=== PATIENT | female | born 1960 | race Caucasian/White ===

== ENCOUNTER 2017-08-29 19:03 | Inpatient (IN) | payer OTHER ==
[~2017-08-29] VITALS: Ht 157.5 cm; Wt 90.0 kg
[~2017-08-29 19:03] MED LIST: ACETAMINOPHEN500 MG PO; ALBIPROI INH; ALBU90OI INH; ALBU90OI6 INH; ALBU90OI61 INH; AMIT25; AMIT25 PO; AMOCLA875 PO; AMOX500 PO; ATEN25 PO; ATEN50; ATEN50 PO; AZIT250 PO; Atenolol50 MG PO; Ativan0.5 MG PO; Ativan1 MG PO; BENZ100A PO; BUSP5 PO; Bactrim Ds Tab1 EACH PO; CARI350; CARI350 PO; CARV6.25 PO; CEPH500 PO; CHLO500 PO; CIPR500 PO; CIPRO500 MG PO; CLON.5 PO; CLON1 PO; CODACE30 PO; CODGUAEL PO; COREG; CYCL10 PO; Cough Syru100 MG/5 M PO; Cyclobenzaprine5 MG PO; DEXGUASY PO; DIAZ2 PO; DIPATR; DIPATR PO; DIPH50 PO; DOC250 PO; DOXY100 PO; Esgic Tablet1 EACH PO; FLUSAL2505 IH; GEMF600; GUAI600ER PO; GUAPHELA PO; HALO5 PO; HYDACE10B; HYDACE10B PO; HYDACE5; HYDACE5 PO; HYDACE5325; HYDACE5325 PO; HYDACE7.5; HYDACE7.5 PO; HYDCHLSU PO; HYDGUAL120; HYDGUAL120 PO; HYDHOMSY PO; HYDPAM25 PO; HYDR1TAB94 PO; IBUP600 PO; IBUP800 PO; INDO25 PO; INSDET100 SC; INSDET100 SQ; INSDETPEN SC; INSULIN MC; KETO10 PO; Keflex500 MG PO; Klonopin0.5 MG PO; LEVFLO250 PO; LEVFLO500 PO; LISI20 PO; LISI5 PO; LORA.5 PO; LORA1; LORA1 PO; LORA2; LORA2 PO; LORTAB 10-3251 EACH PO; META800 PO; METCAR500 PO; METR500 PO; MORP15ER PO; NAPR250 PO; NAPR500 PO; NAPR500EC PO; NAPR550 PO; NITR100CA PO; NORT10; NORT10 PO; NORT25 PO; NYST237S MT; Naprosyn500 MG PO; Norco 10-325 T1 EACH PO; Norco 5-325 Ta1 EACH PO; ONDA4 PO; OXYACE10 PO; OXYACE5T; OXYACE5T PO; OXYC5 PO; PENVK500 PO; PILOCARPINE; PRED20 PO; PROCODE120 PO; PRODEXEL PO; PROM25; PROM25 PO; PROM6.25SY; PROM6.25SY PO; PROP20; Pain Relief500 MG PO; Percocet 5-3251 EACH PO; Phenergan25 M1 PO; Phenergan6.25 MG/5 PO; Prinivil10 MG PO; RXCODGUASY PO; RXHYDACE PO; RXHYDMOR2 PO; RXLORA1 PO; RXNAPNA550 PO; RXPROCODSY PO; RXPROM25 PO; RXSULTRIDS PO; RXTRAM50 PO; Robaxin500 MG PO; SERT50; SOMA350 MG PO; SULTRIDS PO; TIMO.25OPS; TIMO.25OPS OU; TIMO.5OPSO; TIMO.5OPSO OD; TIMO.5OPSO OU; TIZA4 PO; TRAM50 PO; Tenormin25 MG PO; Tenormin50 MG PO; Ultram50 MG PO; VERA240ERB; VICODIN 5-3001 EACH PO; Vistaril25 MG PO; ZOLP10 PO; ZOLP5 PO; Zofran Odt8 MG SL; Zofran4 MG PO; [UNRECOGNIZED DRUG - CODE]; [UNRECOGNIZED DRUG - CODE]; [UNRECOGNIZED DRUG - CODE] OP; [UNRECOGNIZED DRUG - CODE] OU; [UNRECOGNIZED DRUG - OTHER] MC; [UNRECOGNIZED DRUG - REMARK]
[2017-08-29 19:33] LABS: BASOPHILS ABSOLUTE AUTO 0.02 K/mm3 (0.00-0.23); BASOPHILS PERCENT AUTO 0 % (0-2); EOSINOPHILS ABSOLUTE AUTO 0.22 K/mm3 (0.00-0.68); EOSINOPHILS PERCENT AUTO 2 % (0-6); Hematocrit 44.3 % (33.0-51.0); Hemoglobin 14.3 g/dL (11.5-16.0); IMMATURE GRAN ABSOLUTE AUTO 0.06 K/mm3 (0.00-0.10); IMMATURE GRAN PERCENT AUTO 1 % (0-1); LYMPHOCYTES ABSOLUTE AUTO 2.75 K/mm3 (0.84-5.20); LYMPHOCYTES PERCENT AUTO 24 % (21-46); MONOCYTES ABSOLUTE AUTO 1.55 K/mm3 (0.16-1.47); MONOCYTES PERCENT AUTO 13 % (4-13); Mean Corpuscular HGB 29.6 pg (26.0-34.0); Mean Corpuscular HGB Conc 32.3 g/dL (31.5-36.5); Mean Corpuscular Volume 92 fL (80-100); Mean Platelet Volume 12.5 fL (9.1-12.4); NEUTROPHILS ABSOLUTE AUTO 7.04 K/mm3 (1.96-9.15); NEUTROPHILS PERCENT AUTO 61 % (41-73); NRBC ABSOLUTE 0.04 K/mm3 (0.00-0.02); NRBC Auto 0.3 /100 WBC (0.0-0.2); Platelet Count 203 K/mm3 (150-400); RDW Coefficient Variation 13.5 % (11.7-14.2); Red Blood Cell Count 4.83 M/mm3 (3.80-5.20); White Blood Cell Count 11.64 K/mm3 (4.00-11.30)
[2017-08-29] MEDS ORDERED: ATEN50 PO (19:55)
[2017-08-29] MEDS ORDERED: CLON.5 PO (19:58)
[2017-08-29 19:59] LABS: Troponin I <0.015 ng/mL (0.000-0.040)
[2017-08-29] MEDS ORDERED: PROM25 PO (19:59)
[2017-08-29] MEDS ORDERED: NORT25 PO (19:59)
[2017-08-29] MEDS ORDERED: TRAM50 PO (19:59)
[2017-08-29 20:04] LABS: Alanine Aminotransfer (ALT/SGP 31 U/L (12-78); Albumin/Globulin Ratio 0.7 (0.8-1.8); Alk Phos 77 U/L (50-136); Anion Gap 8 mmol/L (6-16); Aspartate Aminotrans (AST/SGOT 23 U/L (12-37); Bilirubin, Total 0.4 mg/dL (0.1-1.0); Blood Urea Nitrogen 14 mg/dL (8-24); Bun/Creatinine Ratio 16.5 (12.0-20.0); CO2, Blood 31 mmol/L (21-32); Chloride, Blood 104 mmol/L (98-108); Creatinine, Blood 0.85 mg/dL (0.40-1.00); Globulin, Blood 4.3 g/dL (2.2-4.0); Glomerular Filtration Rate >60 (60-); Glucose, Blood 102 mg/dL (70-99); Potassium, Blood 3.1 mmol/L (3.5-5.5); Sodium, Blood 143 mmol/L (136-145); Total Protein, Blood 7.3 g/dL (6.4-8.2)
[2017-08-29 20:06] LABS: PCO2 Arterial 51.9 mmHg (35-45); PO2 Arterial 59.9 mmHg (80-100)
[2017-08-30 01:04] LABS: Influenza A Negative (NEGATIVE); Influenza B Negative (NEGATIVE)
[2017-08-30] MEDS ORDERED: SOMA350 MG PO (01:13)
[2017-08-30 06:28] LABS: BASOPHILS ABSOLUTE AUTO 0.01 K/mm3 (0.00-0.23); BASOPHILS PERCENT AUTO 0 % (0-2); EOSINOPHILS ABSOLUTE AUTO 0.01 K/mm3 (0.00-0.68); EOSINOPHILS PERCENT AUTO 0 % (0-6); Hematocrit 44.3 % (33.0-51.0); Hemoglobin 14.2 g/dL (11.5-16.0); IMMATURE GRAN ABSOLUTE AUTO 0.06 K/mm3 (0.00-0.10); IMMATURE GRAN PERCENT AUTO 1 % (0-1); LYMPHOCYTES ABSOLUTE AUTO 0.85 K/mm3 (0.84-5.20); LYMPHOCYTES PERCENT AUTO 9 % (21-46); MONOCYTES PERCENT AUTO 2 % (4-13); Mean Corpuscular HGB 29.3 pg (26.0-34.0); Mean Corpuscular HGB Conc 32.1 g/dL (31.5-36.5); Mean Corpuscular Volume 92 fL (80-100); Mean Platelet Volume 13.1 fL (9.1-12.4); NEUTROPHILS ABSOLUTE AUTO 8.53 K/mm3 (1.96-9.15); NEUTROPHILS PERCENT AUTO 88 % (41-73); Platelet Count 204 K/mm3 (150-400); RDW Coefficient Variation 13.6 % (11.7-14.2); RDW Standard Deviation 45.7 fL (35.1-46.3); Red Blood Cell Count 4.84 M/mm3 (3.80-5.20); White Blood Cell Count 9.66 K/mm3 (4.00-11.30)
[2017-08-30 06:32] LABS: Alanine Aminotransfer (ALT/SGP 43 U/L (12-78); Albumin, Blood 2.9 g/dL (3.4-5.0); Albumin/Globulin Ratio 0.7 (0.8-1.8); Alk Phos 84 U/L (50-136); Anion Gap 7 mmol/L (6-16); Aspartate Aminotrans (AST/SGOT 34 U/L (12-37); Bilirubin, Total 0.4 mg/dL (0.1-1.0); Blood Urea Nitrogen 16 mg/dL (8-24); Bun/Creatinine Ratio 26.2 (12.0-20.0); CO2, Blood 29 mmol/L (21-32); Calcium, Blood 8.7 mg/dL (8.5-10.1); Chloride, Blood 106 mmol/L (98-108); Creatinine, Blood 0.61 mg/dL (0.40-1.00); Globulin, Blood 4.3 g/dL (2.2-4.0); Glomerular Filtration Rate >60 (60-); Glucose, Blood 215 mg/dL (70-99); Sodium, Blood 142 mmol/L (136-145); Total Protein, Blood 7.2 g/dL (6.4-8.2)
[2017-09-01 03:38] LABS: BASOPHILS ABSOLUTE AUTO 0.02 K/mm3 (0.00-0.23); BASOPHILS PERCENT AUTO 0 % (0-2); EOSINOPHILS PERCENT AUTO 0 % (0-6); Hematocrit 40.4 % (33.0-51.0); Hemoglobin 12.8 g/dL (11.5-16.0); IMMATURE GRAN ABSOLUTE AUTO 0.35 K/mm3 (0.00-0.10); IMMATURE GRAN PERCENT AUTO 2 % (0-1); LYMPHOCYTES ABSOLUTE AUTO 0.92 K/mm3 (0.84-5.20); LYMPHOCYTES PERCENT AUTO 6 % (21-46); MONOCYTES ABSOLUTE AUTO 0.88 K/mm3 (0.16-1.47); MONOCYTES PERCENT AUTO 5 % (4-13); Mean Corpuscular HGB Conc 31.7 g/dL (31.5-36.5); Mean Corpuscular Volume 92 fL (80-100); Mean Platelet Volume 12.8 fL (9.1-12.4); NEUTROPHILS ABSOLUTE AUTO 14.08 K/mm3 (1.96-9.15); NEUTROPHILS PERCENT AUTO 87 % (41-73); Platelet Count 215 K/mm3 (150-400); RDW Coefficient Variation 13.9 % (11.7-14.2); RDW Standard Deviation 46.9 fL (35.1-46.3); Red Blood Cell Count 4.41 M/mm3 (3.80-5.20); White Blood Cell Count 16.25 K/mm3 (4.00-11.30)
[2017-09-01 03:55] LABS: Albumin, Blood 2.7 g/dL (3.4-5.0); Albumin/Globulin Ratio 0.7 (0.8-1.8); Bilirubin, Total 0.2 mg/dL (0.1-1.0); Bun/Creatinine Ratio 36.3 (12.0-20.0); Calcium, Blood 8.5 mg/dL (8.5-10.1); Creatinine, Blood 1.02 mg/dL (0.40-1.00); Globulin, Blood 3.7 g/dL (2.2-4.0); Potassium, Blood 3.8 mmol/L (3.5-5.5); Total Protein, Blood 6.4 g/dL (6.4-8.2)
[2017-09-02 04:41] LABS: BASOPHILS ABSOLUTE AUTO 0.02 K/mm3 (0.00-0.23); BASOPHILS PERCENT AUTO 0 % (0-2); EOSINOPHILS PERCENT AUTO 0 % (0-6); Hematocrit 40.9 % (33.0-51.0); IMMATURE GRAN ABSOLUTE AUTO 0.37 K/mm3 (0.00-0.10); IMMATURE GRAN PERCENT AUTO 3 % (0-1); LYMPHOCYTES ABSOLUTE AUTO 1.02 K/mm3 (0.84-5.20); LYMPHOCYTES PERCENT AUTO 8 % (21-46); MONOCYTES ABSOLUTE AUTO 1.17 K/mm3 (0.16-1.47); MONOCYTES PERCENT AUTO 10 % (4-13); Mean Corpuscular HGB Conc 31.8 g/dL (31.5-36.5); Mean Corpuscular Volume 91 fL (80-100); Mean Platelet Volume 12.4 fL (9.1-12.4); NEUTROPHILS ABSOLUTE AUTO 9.69 K/mm3 (1.96-9.15); NEUTROPHILS PERCENT AUTO 79 % (41-73); Platelet Count 186 K/mm3 (150-400); RDW Coefficient Variation 13.7 % (11.7-14.2); RDW Standard Deviation 45.8 fL (35.1-46.3); Red Blood Cell Count 4.48 M/mm3 (3.80-5.20); White Blood Cell Count 12.27 K/mm3 (4.00-11.30)
[2017-09-02 05:02] LABS: Alanine Aminotransfer (ALT/SGP 35 U/L (12-78); Albumin, Blood 2.5 g/dL (3.4-5.0); Albumin/Globulin Ratio 0.7 (0.8-1.8); Alk Phos 58 U/L (50-136); Anion Gap 6 mmol/L (6-16); Aspartate Aminotrans (AST/SGOT 23 U/L (12-37); Bilirubin, Total 0.3 mg/dL (0.1-1.0); Blood Urea Nitrogen 40 mg/dL (8-24); Bun/Creatinine Ratio 48.7 (12.0-20.0); CO2, Blood 29 mmol/L (21-32); Calcium, Blood 8.4 mg/dL (8.5-10.1); Chloride, Blood 109 mmol/L (98-108); Creatinine, Blood 0.82 mg/dL (0.40-1.00); Globulin, Blood 3.5 g/dL (2.2-4.0); Glomerular Filtration Rate >60 (60-); Glucose, Blood 136 mg/dL (70-99); Potassium, Blood 3.6 mmol/L (3.5-5.5); Sodium, Blood 144 mmol/L (136-145)
[2017-09-02] MEDS ORDERED: BUPR150ER PO (12:04)
[2017-09-02] MEDS ORDERED: GUAI600T33 PO (12:05)
[2017-09-02] MEDS ORDERED: LEVO750 PO (12:06)
[2017-09-02] MEDS ORDERED: MIRT30 PO (12:08)
[2017-09-02] MEDS ORDERED: VERA120 PO (12:09)
[2017-09-02] MEDS ORDERED: PRED20 PO (12:10)
[2017-09-02] MEDS ORDERED: ALBU90OI6 INH (12:10)
[2018-05-27] MEDS ORDERED: IBUP100S PO (18:31)
[2018-06-08] MEDS ORDERED: BENZ100A PO (23:58)
[2018-06-08] MEDS ORDERED: Zofran Odt4 MG PO (23:58)
[2018-06-12] MEDS ORDERED: MUCINEX D ER 61 EACH PO (20:13)
[2018-06-12] MEDS ORDERED: ROBITUSSIN COU237 ML PO (20:13)
== END 2017-09-02 13:35 | disposition home or self-care (01) | DRG 189 ==
LOC: ER 19:03 → MEDS 19:04 → PCU 19:04 → ER 19:04 → PCU 23:49 → MEDS 08-30 14:36 → ENPENDDIS 09-02 11:58 → MEDS 09-02 13:35
PROVIDERS: Family Medicine; Internal Medicine; Physician Assistant
PROC: 5A09457 Assistance with Respiratory Ventilation, 24-96 Consecutive Hours, Continuous Positive Airway Pressure (ICD-10-PCS; principal; 2017-08-30)
DX: J96.01 Acute respiratory failure with hypoxia (principal); J18.9 Pneumonia, unspecified organism; J44.0 Chronic obstructive pulmonary disease with (acute) lower respiratory infection; E11.39 Type 2 diabetes mellitus with other diabetic ophthalmic complication; J44.1 Chronic obstructive pulmonary disease with (acute) exacerbation; F32.9 Major depressive disorder, single episode, unspecified; F41.9 Anxiety disorder, unspecified; J96.02 Acute respiratory failure with hypercapnia; G89.4 Chronic pain syndrome; I10 Essential (primary) hypertension; H40.9 Unspecified glaucoma; H54.8 Legal blindness, as defined in USA; E87.6 Hypokalemia; F17.200 Nicotine dependence, unspecified, uncomplicated; G43.909 Migraine, unspecified, not intractable, without status migrainosus; M54.9 Dorsalgia, unspecified; Z79.899 Other long term (current) drug therapy
CPT/HCPCS: 36415; 36600; 71045; 71046; 80053; 82803; 82947; 83036; 84484; 85025; 87804; 93005; 93010; 94640; 94660; 94760; 94761; 94762; 96361; 96365; 96366; 96367; 96372; 96375; 96376; 99285; G0378; J0360; J1650; J1885; J1956; J2270; J2930; J3480; J7030; J7040

== ENCOUNTER 2017-09-08 11:53 | Inpatient (IN) | payer OTHER ==
[~2017-09-08] VITALS: Ht 157.5 cm; Wt 94.4 kg
[~2017-09-08 11:53] MED LIST changes: +BUPR150ER PO; +GUAI600T33 PO; +LEVO750 PO; +MIRT30 PO; +VERA120 PO
[2017-09-08 12:42] LABS: BASOPHILS ABSOLUTE AUTO 0.02 K/mm3 (0.00-0.23); BASOPHILS PERCENT AUTO 0 % (0-2); EOSINOPHILS ABSOLUTE AUTO 0.12 K/mm3 (0.00-0.68); EOSINOPHILS PERCENT AUTO 1 % (0-6); Hematocrit 47.7 % (33.0-51.0); Hemoglobin 15.1 g/dL (11.5-16.0); IMMATURE GRAN ABSOLUTE AUTO 0.13 K/mm3 (0.00-0.10); IMMATURE GRAN PERCENT AUTO 1 % (0-1); LYMPHOCYTES ABSOLUTE AUTO 1.13 K/mm3 (0.84-5.20); LYMPHOCYTES PERCENT AUTO 12 % (21-46); MONOCYTES ABSOLUTE AUTO 1.66 K/mm3 (0.16-1.47); MONOCYTES PERCENT AUTO 18 % (4-13); Mean Corpuscular HGB 28.9 pg (26.0-34.0); Mean Corpuscular HGB Conc 31.7 g/dL (31.5-36.5); Mean Corpuscular Volume 91 fL (80-100); Mean Platelet Volume 12.8 fL (9.1-12.4); NEUTROPHILS ABSOLUTE AUTO 6.04 K/mm3 (1.96-9.15); NEUTROPHILS PERCENT AUTO 67 % (41-73); Platelet Count 173 K/mm3 (150-400); RDW Coefficient Variation 13.8 % (11.7-14.2); RDW Standard Deviation 46.2 fL (35.1-46.3); Red Blood Cell Count 5.22 M/mm3 (3.80-5.20)
[2017-09-08 13:04] LABS: Alanine Aminotransfer (ALT/SGP 38 U/L (12-78); Albumin, Blood 3.1 g/dL (3.4-5.0); Albumin/Globulin Ratio 0.8 (0.8-1.8); Alk Phos 73 U/L (50-136); Anion Gap 7 mmol/L (6-16); Aspartate Aminotrans (AST/SGOT 15 U/L (12-37); Bilirubin, Total 0.3 mg/dL (0.1-1.0); Blood Urea Nitrogen 12 mg/dL (8-24); Bun/Creatinine Ratio 15.8 (12.0-20.0); CO2, Blood 30 mmol/L (21-32); Calcium, Blood 8.3 mg/dL (8.5-10.1); Chloride, Blood 103 mmol/L (98-108); Creatinine, Blood 0.76 mg/dL (0.40-1.00); Globulin, Blood 3.9 g/dL (2.2-4.0); Glomerular Filtration Rate >60 (60-); Glucose, Blood 132 mg/dL (70-99); Potassium, Blood 3.7 mmol/L (3.5-5.5); Sodium, Blood 140 mmol/L (136-145); Troponin I <0.015 ng/mL (0.000-0.040)
[2017-09-08] MEDS ORDERED: BENZ100A PO (16:45)
[2017-09-08 20:30] LABS: Influenza A Negative (NEGATIVE); Influenza B Negative (NEGATIVE)
[2017-09-09 06:01] LABS: BASOPHILS ABSOLUTE AUTO 0.01 K/mm3 (0.00-0.23); BASOPHILS PERCENT AUTO 0 % (0-2); EOSINOPHILS PERCENT AUTO 0 % (0-6); Hematocrit 46.1 % (33.0-51.0); Hemoglobin 14.4 g/dL (11.5-16.0); IMMATURE GRAN ABSOLUTE AUTO 0.12 K/mm3 (0.00-0.10); IMMATURE GRAN PERCENT AUTO 2 % (0-1); LYMPHOCYTES ABSOLUTE AUTO 0.75 K/mm3 (0.84-5.20); LYMPHOCYTES PERCENT AUTO 11 % (21-46); MONOCYTES ABSOLUTE AUTO 0.22 K/mm3 (0.16-1.47); MONOCYTES PERCENT AUTO 3 % (4-13); Mean Corpuscular HGB 28.7 pg (26.0-34.0); Mean Corpuscular HGB Conc 31.2 g/dL (31.5-36.5); Mean Corpuscular Volume 92 fL (80-100); Mean Platelet Volume 12.7 fL (9.1-12.4); NEUTROPHILS ABSOLUTE AUTO 6.01 K/mm3 (1.96-9.15); NEUTROPHILS PERCENT AUTO 85 % (41-73); Platelet Count 178 K/mm3 (150-400); RDW Coefficient Variation 14.2 % (11.7-14.2); RDW Standard Deviation 47.1 fL (35.1-46.3); Red Blood Cell Count 5.01 M/mm3 (3.80-5.20); White Blood Cell Count 7.11 K/mm3 (4.00-11.30)
[2017-09-09 06:38] LABS: Anion Gap 8 mmol/L (6-16); Blood Urea Nitrogen 16 mg/dL (8-24); Bun/Creatinine Ratio 23.4 (12.0-20.0); CO2, Blood 28 mmol/L (21-32); Calcium, Blood 7.9 mg/dL (8.5-10.1); Chloride, Blood 104 mmol/L (98-108); Creatinine, Blood 0.69 mg/dL (0.40-1.00); Glomerular Filtration Rate >60 (60-); Glucose, Blood 262 mg/dL (70-99); Potassium, Blood 3.9 mmol/L (3.5-5.5); Sodium, Blood 140 mmol/L (136-145)
[2017-09-09 13:01] LABS: PCO2 Arterial 48.2 mmHg (35-45); PO2 Arterial 65.5 mmHg (80-100); pH Blood Arterial 7.38 (7.35-7.45)
[2017-09-10] MEDS ORDERED: FAMO20 PO (13:04)
[2017-09-10] MEDS ORDERED: GUAI600T33 PO (13:05)
[2017-09-10] MEDS ORDERED: ACET325 PO (13:05)
[2017-09-10] MEDS ORDERED: LEVO750 PO (13:07)
[2017-09-10] MEDS ORDERED: ALBU90OI6 INH (13:07)
[2017-09-10] MEDS ORDERED: DULERA 100 MCG/13 GM INH (13:08)
[2017-09-10] MEDS ORDERED: AZIT500 PO ×2 (13:35→13:42)
[2017-09-10] MEDS ORDERED: LIDO700A20 TOP (13:36)
[2017-09-10] MEDS ORDERED: DULERA 200 MCG/13 GM INH (13:42)
[2017-09-10] MEDS ORDERED: ATEN25 PO (13:43)
[2018-05-27] MEDS ORDERED: IBUP100S PO (18:31)
[2018-06-08] MEDS ORDERED: BENZ100A PO (23:58)
[2018-06-08] MEDS ORDERED: Zofran Odt4 MG PO (23:58)
[2018-06-12] MEDS ORDERED: ROBITUSSIN COU237 ML PO (20:13)
[2018-06-12] MEDS ORDERED: MUCINEX D ER 61 EACH PO (20:13)
== END 2017-09-10 13:53 | disposition home or self-care (01) | DRG 189 ==
LOC: ER 11:53 → MEDS 18:10 → ENPENDDIS 09-10 10:30 → MEDS 09-10 13:53
PROVIDERS: Emergency Medicine; Family Medicine; Internal Medicine
DX: J96.21 Acute and chronic respiratory failure with hypoxia (principal); J18.9 Pneumonia, unspecified organism; J44.0 Chronic obstructive pulmonary disease with (acute) lower respiratory infection; J44.1 Chronic obstructive pulmonary disease with (acute) exacerbation; F32.9 Major depressive disorder, single episode, unspecified; F41.9 Anxiety disorder, unspecified; G89.4 Chronic pain syndrome; E11.9 Type 2 diabetes mellitus without complications; I10 Essential (primary) hypertension; G43.909 Migraine, unspecified, not intractable, without status migrainosus; Z90.710 Acquired absence of both cervix and uterus; F17.210 Nicotine dependence, cigarettes, uncomplicated; H54.8 Legal blindness, as defined in USA; Z79.84 Long term (current) use of oral hypoglycemic drugs
CPT/HCPCS: 36415; 36600; 71046; 71260; 80048; 80053; 82803; 82947; 83605; 84145; 84484; 85025; 85379; 87040; 87804; 93005; 93010; 94640; 94760; 96365; 96366; 96375; 99285; J0456; J0696; J1650; J2930; J7030; J7050; Q9967

== ENCOUNTER 2017-09-13 17:46 | Emergency (ER) | payer OTHER ==
[~2017-09-13] VITALS: Ht 157.5 cm; Wt 81.7 kg
[~2017-09-13 17:46] MED LIST changes: +ACET325 PO; +AZIT500 PO; +DULERA 100 MCG/13 GM INH; +DULERA 200 MCG/13 GM INH; +FAMO20 PO; +LIDO700A20 TOP
[2017-09-13 19:58] LABS: Alanine Aminotransfer (ALT/SGP 36 U/L (12-78); Alk Phos 61 U/L (50-136); Anion Gap 6 mmol/L (6-16); Aspartate Aminotrans (AST/SGOT 15 U/L (12-37); Bilirubin, Total 0.4 mg/dL (0.1-1.0); Blood Urea Nitrogen 20 mg/dL (8-24); Bun/Creatinine Ratio 26.8 (12.0-20.0); CO2, Blood 31 mmol/L (21-32); Chloride, Blood 103 mmol/L (98-108); Creatinine, Blood 0.75 mg/dL (0.40-1.00); Glomerular Filtration Rate >60 (60-); Glucose, Blood 120 mg/dL (70-99); Sodium, Blood 140 mmol/L (136-145); Troponin I <0.015 ng/mL (0.000-0.040)
[2017-09-13 20:27] LABS: BASOPHILS ABSOLUTE AUTO 0.03 K/mm3 (0.00-0.23); BASOPHILS PERCENT AUTO 0 % (0-2); EOSINOPHILS ABSOLUTE AUTO 0.16 K/mm3 (0.00-0.68); EOSINOPHILS PERCENT AUTO 1 % (0-6); Hematocrit 43.1 % (33.0-51.0); Hemoglobin 13.7 g/dL (11.5-16.0); IMMATURE GRAN PERCENT AUTO 1 % (0-1); LYMPHOCYTES ABSOLUTE AUTO 3.32 K/mm3 (0.84-5.20); LYMPHOCYTES PERCENT AUTO 23 % (21-46); MONOCYTES ABSOLUTE AUTO 0.85 K/mm3 (0.16-1.47); MONOCYTES PERCENT AUTO 6 % (4-13); Mean Corpuscular HGB 29.1 pg (26.0-34.0); Mean Corpuscular HGB Conc 31.8 g/dL (31.5-36.5); Mean Corpuscular Volume 92 fL (80-100); Mean Platelet Volume 11.9 fL (9.1-12.4); NEUTROPHILS PERCENT AUTO 69 % (41-73); Platelet Count 193 K/mm3 (150-400); RDW Coefficient Variation 14.3 % (11.7-14.2); RDW Standard Deviation 47.1 fL (35.1-46.3); Red Blood Cell Count 4.71 M/mm3 (3.80-5.20); White Blood Cell Count 14.56 K/mm3 (4.00-11.30)
[2017-09-13] MEDS ORDERED: Prednisone20 MG PO (22:34)
[2017-09-13] MEDS ORDERED: Q-Tussin100 MG/5 M PO (22:34)
[2018-05-27] MEDS ORDERED: IBUP100S PO (18:31)
[2018-06-08] MEDS ORDERED: BENZ100A PO (23:58)
[2018-06-08] MEDS ORDERED: Zofran Odt4 MG PO (23:58)
[2018-06-12] MEDS ORDERED: MUCINEX D ER 61 EACH PO (20:13)
[2018-06-12] MEDS ORDERED: ROBITUSSIN COU237 ML PO (20:13)
== END 2017-09-13 22:55 | disposition home or self-care (01) ==
LOC: ER 17:46
PROVIDERS: Emergency Medicine
DX: J44.1 Chronic obstructive pulmonary disease with (acute) exacerbation (principal); R55 Syncope and collapse; Z79.899 Other long term (current) drug therapy; Z79.891 Long term (current) use of opiate analgesic; Z79.52 Long term (current) use of systemic steroids; Z79.2 Long term (current) use of antibiotics; I10 Essential (primary) hypertension; E11.9 Type 2 diabetes mellitus without complications; F17.200 Nicotine dependence, unspecified, uncomplicated; Z87.01 Personal history of pneumonia (recurrent)
CPT/HCPCS: 71046; 80053; 83880; 84484; 85025; 93005; 93010; 94640; 96361; 96374; 96375; 99284; J1885; J2405; J2930; J7030

== ENCOUNTER 2017-12-30 19:50 | Emergency (ER) | payer OTHER ==
[~2017-12-30] VITALS: Ht 157.5 cm; Wt 72.6 kg
[~2017-12-30 19:50] MED LIST changes: +Prednisone20 MG PO; +Q-Tussin100 MG/5 M PO
== END 2017-12-30 21:21 | disposition home or self-care (01) ==
LOC: ER 19:50
DX: S20.212A Contusion of left front wall of thorax, initial encounter (principal); J44.9 Chronic obstructive pulmonary disease, unspecified; I10 Essential (primary) hypertension; E11.9 Type 2 diabetes mellitus without complications; F17.210 Nicotine dependence, cigarettes, uncomplicated; Z79.899 Other long term (current) drug therapy; Z79.52 Long term (current) use of systemic steroids; W01.0XXA Fall on same level from slipping, tripping and stumbling without subsequent striking against object, initial encounter
CPT/HCPCS: 71101; 96372; 99283; J1885

== ENCOUNTER 2018-01-23 22:56 | Emergency (ER) | payer OTHER ==
[~2018-01-23] VITALS: Ht 157.5 cm; Wt 77.1 kg
[2018-01-24] MEDS ORDERED: Robaxin-750750 MG PO (04:37)
== END 2018-01-24 05:12 | disposition home or self-care (01) ==
LOC: ER 22:56
DX: S20.212A Contusion of left front wall of thorax, initial encounter (principal); W18.30XA Fall on same level, unspecified, initial encounter; Z79.899 Other long term (current) drug therapy; Z79.891 Long term (current) use of opiate analgesic; J44.9 Chronic obstructive pulmonary disease, unspecified; I10 Essential (primary) hypertension; E11.9 Type 2 diabetes mellitus without complications; F17.200 Nicotine dependence, unspecified, uncomplicated
CPT/HCPCS: 71100; 96374; 96375; 96376; 99283; J1885; J2405

== ENCOUNTER 2018-01-28 14:13 | Emergency (ER) | payer OTHER ==
[~2018-01-28 14:13] MED LIST changes: +Robaxin-750750 MG PO
== END 2018-01-28 14:21 | disposition left against medical advice (07) ==
LOC: ER 14:13
DX: Z53.21 Procedure and treatment not carried out due to patient leaving prior to being seen by health care provider (principal)

== ENCOUNTER 2018-02-15 18:53 | Emergency (ER) | payer OTHER ==
[~2018-02-15] VITALS: Ht 157.5 cm; Wt 74.8 kg
== END 2018-02-15 19:42 | disposition home or self-care (01) ==
LOC: ER 18:53
DX: T14.8XXA Other injury of unspecified body region, initial encounter (principal); J02.9 Acute pharyngitis, unspecified; Z79.899 Other long term (current) drug therapy; Z79.891 Long term (current) use of opiate analgesic; J44.9 Chronic obstructive pulmonary disease, unspecified; I10 Essential (primary) hypertension; E11.9 Type 2 diabetes mellitus without complications; Z87.01 Personal history of pneumonia (recurrent); F17.210 Nicotine dependence, cigarettes, uncomplicated; W18.30XA Fall on same level, unspecified, initial encounter
CPT/HCPCS: 73562-LT; 73562-RT; 73600; 99283-25

== ENCOUNTER 2018-08-12 15:14 | Emergency (ER) | payer OTHER ==
[~2018-08-12] VITALS: Ht 157.5 cm; Wt 77.1 kg
[~2018-08-12 15:14] MED LIST changes: +IBUP100S PO; +MUCINEX D ER 61 EACH PO; +ROBITUSSIN COU237 ML PO; +Zofran Odt4 MG PO
== END 2018-08-12 15:47 | disposition home or self-care (01) ==
LOC: ER 15:14
DX: G43.909 Migraine, unspecified, not intractable, without status migrainosus (principal); Z79.899 Other long term (current) drug therapy; J44.9 Chronic obstructive pulmonary disease, unspecified; E11.9 Type 2 diabetes mellitus without complications; F17.210 Nicotine dependence, cigarettes, uncomplicated; Z87.01 Personal history of pneumonia (recurrent)
CPT/HCPCS: 96372; 99282-25; J1885; J2765; Q0163

== ENCOUNTER 2018-08-22 00:09 | Emergency (ER) | payer OTHER ==
[~2018-08-22] VITALS: Ht 157.5 cm; Wt 79.4 kg
[2018-08-22] MEDS ORDERED: NYST237S SS (03:23)
== END 2018-08-22 03:46 | disposition home or self-care (01) ==
LOC: ER 00:09
DX: S00.512A Abrasion of oral cavity, initial encounter (principal); X58.XXXA Exposure to other specified factors, initial encounter; Z79.899 Other long term (current) drug therapy; J44.9 Chronic obstructive pulmonary disease, unspecified; I10 Essential (primary) hypertension; E11.9 Type 2 diabetes mellitus without complications; F17.210 Nicotine dependence, cigarettes, uncomplicated
CPT/HCPCS: 99282

== ENCOUNTER 2018-09-02 12:18 | Emergency (ER) | payer OTHER ==
[~2018-09-02] VITALS: Ht 157.5 cm; Wt 76.2 kg
[~2018-09-02 12:18] MED LIST changes: +NYST237S SS
[2018-09-02] MEDS ORDERED: NEOPOLHCSU RIGHTEAR (12:34)
[2018-09-02] MEDS ORDERED: TETRACAINE HCL RIGHTEAR (12:34)
== END 2018-09-02 12:37 | disposition home or self-care (01) ==
LOC: ER 12:18
DX: H60.91 Unspecified otitis externa, right ear (principal); I10 Essential (primary) hypertension; J44.9 Chronic obstructive pulmonary disease, unspecified; E11.9 Type 2 diabetes mellitus without complications; F17.210 Nicotine dependence, cigarettes, uncomplicated
CPT/HCPCS: 99283

== ENCOUNTER 2018-09-10 12:47 | Emergency (ER) | payer OTHER ==
[~2018-09-10] VITALS: Ht 157.5 cm; Wt 81.7 kg
[~2018-09-10 12:47] MED LIST changes: +NEOPOLHCSU RIGHTEAR; +TETRACAINE HCL RIGHTEAR
== END 2018-09-10 13:59 | disposition home or self-care (01) ==
LOC: ER 12:47
DX: R51 Headache (principal); K13.79 Other lesions of oral mucosa; I10 Essential (primary) hypertension; F17.210 Nicotine dependence, cigarettes, uncomplicated; Z79.899 Other long term (current) drug therapy
CPT/HCPCS: 99282

== ENCOUNTER 2018-09-11 15:50 | Emergency (ER) | payer OTHER ==
[~2018-09-11] VITALS: Ht 157.5 cm; Wt 68.0 kg
== END 2018-09-11 16:23 ==
LOC: ER 15:50
DX: Z53.21 Procedure and treatment not carried out due to patient leaving prior to being seen by health care provider (principal)
CPT/HCPCS: 99281

== ENCOUNTER 2018-09-11 22:47 | Emergency (ER) | payer OTHER ==
[~2018-09-11] VITALS: Ht 157.5 cm; Wt 81.7 kg
== END 2018-09-11 23:30 | disposition home or self-care (01) ==
LOC: ER 22:47
DX: J40 Bronchitis, not specified as acute or chronic (principal); Z79.899 Other long term (current) drug therapy; I10 Essential (primary) hypertension; E11.9 Type 2 diabetes mellitus without complications; F17.200 Nicotine dependence, unspecified, uncomplicated
CPT/HCPCS: 99283; Q0163

== ENCOUNTER 2018-09-24 18:26 | Emergency (ER) | payer OTHER ==
[~2018-09-24] VITALS: Ht 160 cm; Wt 83.9 kg
== END 2018-09-24 19:25 | disposition home or self-care (01) ==
LOC: ER 18:26
DX: G89.3 Neoplasm related pain (acute) (chronic) (principal); D49.0 Neoplasm of unspecified behavior of digestive system; K13.79 Other lesions of oral mucosa; Z79.899 Other long term (current) drug therapy; I10 Essential (primary) hypertension; E11.9 Type 2 diabetes mellitus without complications; F17.210 Nicotine dependence, cigarettes, uncomplicated
CPT/HCPCS: 99282

== ENCOUNTER 2018-10-02 15:21 | Emergency (ER) | payer OTHER ==
[~2018-10-02] VITALS: Ht 157.5 cm; Wt 79.4 kg
[2018-10-02] MEDS ORDERED: NYST237S MT (15:59)
== END 2018-10-02 16:12 | disposition home or self-care (01) ==
LOC: ER 15:21
DX: K12.1 Other forms of stomatitis (principal); J44.9 Chronic obstructive pulmonary disease, unspecified; I10 Essential (primary) hypertension; E11.9 Type 2 diabetes mellitus without complications; F17.210 Nicotine dependence, cigarettes, uncomplicated; Z79.899 Other long term (current) drug therapy
CPT/HCPCS: 99282

== ENCOUNTER → 2018-10-30 | Outpatient (CLI) | payer OTHER | END | disposition home or self-care (01) | LOC: LAB SHORT 14:00 → LAB 14:00 | DX: H60.93 Unspecified otitis externa, bilateral (principal) | CPT/HCPCS: 87070; 87077; 87147; 87186; 87205 ==

== ENCOUNTER 2018-12-07 18:22 | Emergency (ER) | payer OTHER ==
[~2018-12-07] VITALS: Ht 157.5 cm; Wt 76.7 kg
[2018-12-07 19:10] LABS: BASOPHILS ABSOLUTE AUTO 0.07 K/mm3 (0.00-0.23); BASOPHILS PERCENT AUTO 1 % (0-2); EOSINOPHILS ABSOLUTE AUTO 0.29 K/mm3 (0.00-0.68); EOSINOPHILS PERCENT AUTO 3 % (0-6); Hematocrit 41.7 % (33.0-51.0); Hemoglobin 12.9 g/dL (11.5-16.0); IMMATURE GRAN ABSOLUTE AUTO 0.03 K/mm3 (0.00-0.10); IMMATURE GRAN PERCENT AUTO 0 % (0-1); LYMPHOCYTES ABSOLUTE AUTO 1.87 K/mm3 (0.84-5.20); LYMPHOCYTES PERCENT AUTO 20 % (21-46); MONOCYTES ABSOLUTE AUTO 0.82 K/mm3 (0.16-1.47); MONOCYTES PERCENT AUTO 9 % (4-13); Mean Corpuscular HGB 29.1 pg (26.0-34.0); Mean Corpuscular HGB Conc 30.9 g/dL (31.5-36.5); Mean Corpuscular Volume 94 fL (80-100); Mean Platelet Volume 12.2 fL (9.1-12.4); NEUTROPHILS ABSOLUTE AUTO 6.47 K/mm3 (1.96-9.15); NEUTROPHILS PERCENT AUTO 68 % (41-73); Platelet Count 203 K/mm3 (150-400); RDW Coefficient Variation 13.8 % (11.7-14.2); RDW Standard Deviation 47.7 fL (35.1-46.3); Red Blood Cell Count 4.43 M/mm3 (3.80-5.20); White Blood Cell Count 9.55 K/mm3 (4.00-11.30)
[2018-12-07 19:33] LABS: Alanine Aminotransfer (ALT/SGP 19 U/L (12-78); Albumin, Blood 3.2 g/dL (3.4-5.0); Albumin/Globulin Ratio 0.9 (0.8-1.8); Alk Phos 76 U/L (50-136); Anion Gap 4 mmol/L (6-16); Aspartate Aminotrans (AST/SGOT 8 U/L (12-37); Bilirubin, Total 0.2 mg/dL (0.1-1.0); Blood Urea Nitrogen 14 mg/dL (8-24); Bun/Creatinine Ratio 19.6 (12.0-20.0); CO2, Blood 31 mmol/L (21-32); Calcium, Blood 8.8 mg/dL (8.5-10.1); Chloride, Blood 106 mmol/L (98-108); Creatinine, Blood 0.72 mg/dL (0.40-1.00); Globulin, Blood 3.5 g/dL (2.2-4.0); Glomerular Filtration Rate >60 (60-); Glucose, Blood 112 mg/dL (70-99); Potassium, Blood 3.6 mmol/L (3.5-5.5); Sodium, Blood 141 mmol/L (136-145); Total Protein, Blood 6.7 g/dL (6.4-8.2)
== END 2018-12-07 19:47 | disposition home or self-care (01) ==
LOC: ER 18:22
PROVIDERS: Physician Assistant
DX: K13.79 Other lesions of oral mucosa (principal); J44.9 Chronic obstructive pulmonary disease, unspecified; G43.909 Migraine, unspecified, not intractable, without status migrainosus; I10 Essential (primary) hypertension; E11.9 Type 2 diabetes mellitus without complications
CPT/HCPCS: 36415; 80053; 84484; 85025; 94640; 96374; 96375; 99283-25; J1885; J2405

== ENCOUNTER 2018-12-20 12:27 | Emergency (ER) | payer OTHER ==
[~2018-12-20] VITALS: Ht 152.4 cm; Wt 81.7 kg
== END 2018-12-20 13:40 | disposition home or self-care (01) ==
LOC: ER 12:27
DX: S96.911A Strain of unspecified muscle and tendon at ankle and foot level, right foot, initial encounter (principal); R51 Headache; R11.2 Nausea with vomiting, unspecified; R19.7 Diarrhea, unspecified; X50.9XXA Other and unspecified overexertion or strenuous movements or postures, initial encounter; J44.9 Chronic obstructive pulmonary disease, unspecified; I10 Essential (primary) hypertension; E11.9 Type 2 diabetes mellitus without complications; F17.210 Nicotine dependence, cigarettes, uncomplicated; Z79.899 Other long term (current) drug therapy
CPT/HCPCS: 73600; 99283-25

== ENCOUNTER 2019-01-04 11:49 | Emergency (ER) | payer OTHER ==
[~2019-01-04] VITALS: Ht 175.3 cm; Wt 90.7 kg
[2019-01-04] MEDS ORDERED: IBUP100S PO (12:54)
[2019-01-04] MEDS ORDERED: Benadryl A12.5 MG/5 PO (12:54)
[2019-01-04] MEDS ORDERED: BENZ100A PO (12:54)
[2019-01-04] MEDS ORDERED: KETO10 PO (13:00)
== END 2019-01-04 13:17 | disposition home or self-care (01) ==
LOC: ER 11:49
DX: K13.79 Other lesions of oral mucosa (principal); J44.9 Chronic obstructive pulmonary disease, unspecified; I10 Essential (primary) hypertension; E11.9 Type 2 diabetes mellitus without complications; G89.29 Other chronic pain; F17.210 Nicotine dependence, cigarettes, uncomplicated; Z79.899 Other long term (current) drug therapy
CPT/HCPCS: 99282

== ENCOUNTER 2019-01-08 19:02 | Emergency (ER) | payer OTHER ==
[~2019-01-08] VITALS: Ht 160 cm; Wt 81.7 kg
[~2019-01-08 19:02] MED LIST changes: +Benadryl A12.5 MG/5 PO
[2019-01-08] MEDS ORDERED: PROM25 PO (20:01)
== END 2019-01-08 20:15 | disposition home or self-care (01) ==
LOC: ER 19:02
DX: R51 Headache (principal); M54.5 Low back pain; G89.29 Other chronic pain; Z79.899 Other long term (current) drug therapy; I10 Essential (primary) hypertension; J44.9 Chronic obstructive pulmonary disease, unspecified; G43.909 Migraine, unspecified, not intractable, without status migrainosus; E11.9 Type 2 diabetes mellitus without complications; F17.210 Nicotine dependence, cigarettes, uncomplicated
CPT/HCPCS: 96372; 99284-25; J1885

== ENCOUNTER 2019-01-14 16:55 | Emergency (ER) | payer OTHER ==
[~2019-01-14] VITALS: Ht 157.5 cm; Wt 81.7 kg
[2019-01-14] MEDS ORDERED: Phenergan6.25 MG/5 PO (18:22)
[2019-01-14] MEDS ORDERED: Robaxin500 MG PO (18:28)
== END 2019-01-14 18:52 | disposition home or self-care (01) ==
LOC: ER 16:55
DX: K13.79 Other lesions of oral mucosa (principal); J44.9 Chronic obstructive pulmonary disease, unspecified; I10 Essential (primary) hypertension; E11.9 Type 2 diabetes mellitus without complications; F17.210 Nicotine dependence, cigarettes, uncomplicated
CPT/HCPCS: 96372; 99282-25; J1885

== ENCOUNTER 2019-01-20 08:50 | Emergency (ER) | payer OTHER ==
[~2019-01-20] VITALS: Ht 157.5 cm; Wt 77.1 kg
[2019-01-20] MEDS ORDERED: NYST237S MT (09:43)
[2019-04-08] MEDS ORDERED: Motrin100 MG/5 M PO (15:06)
[2019-04-08] MEDS ORDERED: NYST237S MT (15:06)
== END 2019-01-20 09:53 | disposition home or self-care (01) ==
LOC: ER 08:50
DX: K13.79 Other lesions of oral mucosa (principal); Z85.819 Personal history of malignant neoplasm of unspecified site of lip, oral cavity, and pharynx; Z79.899 Other long term (current) drug therapy; J44.9 Chronic obstructive pulmonary disease, unspecified; I10 Essential (primary) hypertension; E11.9 Type 2 diabetes mellitus without complications; F17.210 Nicotine dependence, cigarettes, uncomplicated
CPT/HCPCS: 96372; 99283-25; J1885

== ENCOUNTER 2019-01-27 13:37 | Emergency (ER) | payer OTHER ==
[~2019-01-27] VITALS: Ht 157.5 cm; Wt 81.7 kg
[2019-01-27] MEDS ORDERED: Tylenol Su160 MG/5 M PO (14:08)
[2019-01-27] MEDS ORDERED: Benadryl A12.5 MG/5 PO (14:08)
[2019-01-27] MEDS ORDERED: ALUM320SU PO (14:08)
[2019-01-27] MEDS ORDERED: Robaxin500 MG PO (14:31)
[2019-01-27] MEDS ORDERED: Phenergan6.25 MG/5 PO (14:31)
[2019-04-08] MEDS ORDERED: NYST237S MT (15:06)
[2019-04-08] MEDS ORDERED: Motrin100 MG/5 M PO (15:06)
== END 2019-01-27 14:30 | disposition home or self-care (01) ==
LOC: ER 13:37
DX: K13.79 Other lesions of oral mucosa (principal); R51 Headache; Z79.899 Other long term (current) drug therapy; J44.9 Chronic obstructive pulmonary disease, unspecified; I10 Essential (primary) hypertension; E11.9 Type 2 diabetes mellitus without complications; F17.210 Nicotine dependence, cigarettes, uncomplicated
CPT/HCPCS: 96372; 99283-25; J1630

== ENCOUNTER 2019-01-28 06:26 | Emergency (ER) | payer OTHER ==
[~2019-01-28] VITALS: Ht 157.5 cm; Wt 77.6 kg
[~2019-01-28 06:26] MED LIST changes: +ALUM320SU PO; +Tylenol Su160 MG/5 M PO
[2019-01-28 08:13] LABS: BASOPHILS ABSOLUTE AUTO 0.08 K/mm3 (0.00-0.23); BASOPHILS PERCENT AUTO 1 % (0-2); EOSINOPHILS ABSOLUTE AUTO 0.31 K/mm3 (0.00-0.68); EOSINOPHILS PERCENT AUTO 3 % (0-6); Hematocrit 42.3 % (33.0-51.0); Hemoglobin 13.3 g/dL (11.5-16.0); IMMATURE GRAN ABSOLUTE AUTO 0.05 K/mm3 (0.00-0.10); IMMATURE GRAN PERCENT AUTO 1 % (0-1); LYMPHOCYTES ABSOLUTE AUTO 1.88 K/mm3 (0.84-5.20); LYMPHOCYTES PERCENT AUTO 19 % (21-46); MONOCYTES ABSOLUTE AUTO 0.71 K/mm3 (0.16-1.47); MONOCYTES PERCENT AUTO 7 % (4-13); Mean Corpuscular HGB 28.7 pg (26.0-34.0); Mean Corpuscular HGB Conc 31.4 g/dL (31.5-36.5); Mean Corpuscular Volume 91 fL (80-100); Mean Platelet Volume 12.7 fL (9.1-12.4); NEUTROPHILS ABSOLUTE AUTO 6.68 K/mm3 (1.96-9.15); NEUTROPHILS PERCENT AUTO 69 % (41-73); Platelet Count 175 K/mm3 (150-400); RDW Coefficient Variation 13.4 % (11.7-14.2); RDW Standard Deviation 44.8 fL (35.1-46.3); Red Blood Cell Count 4.64 M/mm3 (3.80-5.20); White Blood Cell Count 9.71 K/mm3 (4.00-11.30)
[2019-01-28 08:30] LABS: Alanine Aminotransfer (ALT/SGP 21 U/L (12-78); Albumin, Blood 3.2 g/dL (3.4-5.0); Albumin/Globulin Ratio 0.9 (0.8-1.8); Alk Phos 100 U/L (50-136); Anion Gap 5 mmol/L (6-16); Aspartate Aminotrans (AST/SGOT 16 U/L (12-37); Bilirubin, Total 0.3 mg/dL (0.1-1.0); Blood Urea Nitrogen 16 mg/dL (8-24); Bun/Creatinine Ratio 21.3 (12.0-20.0); CO2, Blood 27 mmol/L (21-32); Calcium, Blood 8.3 mg/dL (8.5-10.1); Chloride, Blood 112 mmol/L (98-108); Creatinine, Blood 0.75 mg/dL (0.40-1.00); Globulin, Blood 3.5 g/dL (2.2-4.0); Glomerular Filtration Rate >60 (60-); Glucose, Blood 98 mg/dL (70-99); Potassium, Blood 3.9 mmol/L (3.5-5.5); Sodium, Blood 144 mmol/L (136-145); Total Protein, Blood 6.7 g/dL (6.4-8.2); Troponin I <0.015 ng/mL (0.000-0.040)
[2019-04-08] MEDS ORDERED: Motrin100 MG/5 M PO (15:06)
[2019-04-08] MEDS ORDERED: NYST237S MT (15:06)
== END 2019-01-28 11:08 | disposition home or self-care (01) ==
LOC: ER 06:26
PROVIDERS: Emergency Medicine
DX: R07.9 Chest pain, unspecified (principal); Z79.899 Other long term (current) drug therapy; I10 Essential (primary) hypertension; E11.9 Type 2 diabetes mellitus without complications; F17.200 Nicotine dependence, unspecified, uncomplicated
CPT/HCPCS: 36415; 80053; 84484; 85025; 93005; 93010; 99284-25; A9270

== ENCOUNTER 2019-01-31 12:41 | Emergency (ER) | payer OTHER ==
[~2019-01-31] VITALS: Ht 157.5 cm; Wt 77.1 kg
[2019-04-08] MEDS ORDERED: Motrin100 MG/5 M PO (15:06)
[2019-04-08] MEDS ORDERED: NYST237S MT (15:06)
== END 2019-01-31 13:50 | disposition home or self-care (01) ==
LOC: ER 12:41
DX: G43.909 Migraine, unspecified, not intractable, without status migrainosus (principal); Z79.899 Other long term (current) drug therapy; J44.9 Chronic obstructive pulmonary disease, unspecified; I10 Essential (primary) hypertension; E11.9 Type 2 diabetes mellitus without complications; F17.200 Nicotine dependence, unspecified, uncomplicated
CPT/HCPCS: 96372; 99283-25; J0780; J1885; Q0163

== ENCOUNTER 2019-02-02 10:32 | Emergency (ER) | payer OTHER ==
[~2019-02-02] VITALS: Ht 157.5 cm; Wt 77.1 kg
[2019-02-02] MEDS ORDERED: CEPH500 PO (11:48)
[2019-04-08] MEDS ORDERED: Motrin100 MG/5 M PO (15:06)
[2019-04-08] MEDS ORDERED: NYST237S MT (15:06)
== END 2019-02-02 12:02 | disposition home or self-care (01) ==
LOC: ER 10:32
DX: S93.402A Sprain of unspecified ligament of left ankle, initial encounter (principal); L03.116 Cellulitis of left lower limb; W01.0XXA Fall on same level from slipping, tripping and stumbling without subsequent striking against object, initial encounter; Z79.899 Other long term (current) drug therapy; J44.9 Chronic obstructive pulmonary disease, unspecified; I10 Essential (primary) hypertension; E11.9 Type 2 diabetes mellitus without complications; F17.200 Nicotine dependence, unspecified, uncomplicated
CPT/HCPCS: 73600; 99283-25

== ENCOUNTER 2019-02-05 08:06 | Emergency (ER) | payer OTHER ==
[~2019-02-05] VITALS: Ht 157.5 cm; Wt 77.1 kg
[2019-04-08] MEDS ORDERED: NYST237S MT (15:06)
[2019-04-08] MEDS ORDERED: Motrin100 MG/5 M PO (15:06)
== END 2019-02-05 08:24 | disposition home or self-care (01) ==
LOC: ER 08:06
DX: S90.861A Insect bite (nonvenomous), right foot, initial encounter (principal); R11.0 Nausea; J44.9 Chronic obstructive pulmonary disease, unspecified; I10 Essential (primary) hypertension; E11.9 Type 2 diabetes mellitus without complications; Z79.899 Other long term (current) drug therapy; F17.210 Nicotine dependence, cigarettes, uncomplicated; W57.XXXA Bitten or stung by nonvenomous insect and other nonvenomous arthropods, initial encounter
CPT/HCPCS: 99283; A9270

== ENCOUNTER 2019-02-07 16:06 | Emergency (ER) | payer OTHER ==
[~2019-02-07] VITALS: Ht 157.5 cm; Wt 81.2 kg
[2019-02-07] MEDS ORDERED: PROM25 PO (16:21)
[2019-02-07] MEDS ORDERED: NYST237S MT (16:21)
[2019-02-07 16:44] LABS: Source, Urine Clean Catch
[2019-02-07 16:47] LABS: Bilirubin, Urine Neg (Neg); Blood, Urine 3+ (Neg); Glucose Qualitative, Urine Neg (Neg); Ketones, Urine Neg (Neg); Leukocyte Esterase, Urine 2+ (Neg); Nitrite, Urine Neg (Neg); Protein, Urine 1+ (Neg); Specific Gravity, Urine 1.005 (1.003-1.022); Urobilinogen, Urine NORM (Normal)
[2019-02-07 16:59] LABS: Appearance, Urine Clear (Clear); Color, Urine Pale Yellow (P-Yellow)
[2019-02-07 17:00] LABS: Squamous Epithelial Cells Mod /hpf (Few)
[2019-02-07 17:01] LABS: Red Blood Cells, Urine 0-2 /hpf (0-2)
[2019-02-07 17:02] LABS: Bacteria Rare /hpf
[2019-04-08] MEDS ORDERED: Motrin100 MG/5 M PO (15:06)
[2019-04-08] MEDS ORDERED: NYST237S MT (15:06)
== END 2019-02-07 17:36 | disposition home or self-care (01) ==
LOC: ER 16:06
PROVIDERS: Emergency Medicine
DX: S06.9X9A Unspecified intracranial injury with loss of consciousness of unspecified duration, initial encounter (principal); R11.2 Nausea with vomiting, unspecified; R19.7 Diarrhea, unspecified; K13.70 Unspecified lesions of oral mucosa; W01.198A Fall on same level from slipping, tripping and stumbling with subsequent striking against other object, initial encounter; I10 Essential (primary) hypertension; J44.9 Chronic obstructive pulmonary disease, unspecified; G43.909 Migraine, unspecified, not intractable, without status migrainosus; E11.9 Type 2 diabetes mellitus without complications; Z79.899 Other long term (current) drug therapy
CPT/HCPCS: 70450; 81001; 87086; 96372; 99284-25; J1200; J1630; J1885

== ENCOUNTER 2019-02-11 20:08 | Emergency (ER) | payer OTHER ==
[~2019-02-11] VITALS: Ht 157.5 cm; Wt 79.4 kg
[2019-02-11] MEDS ORDERED: ONDA4ODT MM (21:34)
[2019-02-11] MEDS ORDERED: Cleocin HCl300 MG PO (21:34)
[2019-02-11] MEDS ORDERED: NYST237S MT (21:34)
[2019-04-08] MEDS ORDERED: Motrin100 MG/5 M PO (15:06)
[2019-04-08] MEDS ORDERED: NYST237S MT (15:06)
== END 2019-02-11 21:54 | disposition home or self-care (01) ==
LOC: ER 20:08
DX: L03.116 Cellulitis of left lower limb (principal); R19.7 Diarrhea, unspecified; Z76.5 Malingerer [conscious simulation]; Z79.899 Other long term (current) drug therapy; F17.210 Nicotine dependence, cigarettes, uncomplicated; E11.9 Type 2 diabetes mellitus without complications; I10 Essential (primary) hypertension; J44.9 Chronic obstructive pulmonary disease, unspecified
CPT/HCPCS: 99283

== ENCOUNTER 2019-02-18 13:52 | Emergency (ER) | payer OTHER ==
[~2019-02-18] VITALS: Ht 157.5 cm; Wt 77.1 kg
[~2019-02-18 13:52] MED LIST changes: +Cleocin HCl300 MG PO; +ONDA4ODT MM
[2019-02-18] MEDS ORDERED: PROM25 PO (14:56)
[2019-04-08] MEDS ORDERED: NYST237S MT (15:06)
[2019-04-08] MEDS ORDERED: Motrin100 MG/5 M PO (15:06)
== END 2019-02-18 15:17 | disposition home or self-care (01) ==
LOC: ER 13:52
DX: R11.2 Nausea with vomiting, unspecified (principal); G43.909 Migraine, unspecified, not intractable, without status migrainosus; I10 Essential (primary) hypertension; J44.9 Chronic obstructive pulmonary disease, unspecified; E11.9 Type 2 diabetes mellitus without complications
CPT/HCPCS: 96372; 99283; J1885; J2550

== ENCOUNTER 2019-02-25 20:40 | Emergency (ER) | payer OTHER ==
[~2019-02-25] VITALS: Ht 160 cm; Wt 77.1 kg
[2019-02-25 21:48] LABS: BASOPHILS ABSOLUTE AUTO 0.05 K/mm3 (0.00-0.23); BASOPHILS PERCENT AUTO 1 % (0-2); EOSINOPHILS PERCENT AUTO 2 % (0-6); Hematocrit 40.9 % (33.0-51.0); IMMATURE GRAN ABSOLUTE AUTO 0.02 K/mm3 (0.00-0.10); IMMATURE GRAN PERCENT AUTO 0 % (0-1); LYMPHOCYTES ABSOLUTE AUTO 1.71 K/mm3 (0.84-5.20); LYMPHOCYTES PERCENT AUTO 18 % (21-46); MONOCYTES ABSOLUTE AUTO 1.05 K/mm3 (0.16-1.47); MONOCYTES PERCENT AUTO 11 % (4-13); Mean Corpuscular HGB 28.8 pg (26.0-34.0); Mean Corpuscular HGB Conc 31.8 g/dL (31.5-36.5); Mean Corpuscular Volume 91 fL (80-100); Mean Platelet Volume 12.2 fL (9.1-12.4); NEUTROPHILS ABSOLUTE AUTO 6.55 K/mm3 (1.96-9.15); NEUTROPHILS PERCENT AUTO 68 % (41-73); Platelet Count 174 K/mm3 (150-400); RDW Coefficient Variation 13.4 % (11.7-14.2); RDW Standard Deviation 43.8 fL (35.1-46.3); Red Blood Cell Count 4.52 M/mm3 (3.80-5.20); White Blood Cell Count 9.58 K/mm3 (4.00-11.30)
[2019-02-25 22:07] LABS: Alanine Aminotransfer (ALT/SGP 14 U/L (12-78); Albumin, Blood 3.3 g/dL (3.4-5.0); Albumin/Globulin Ratio 0.8 (0.8-1.8); Alk Phos 87 U/L (50-136); Anion Gap 4 mmol/L (6-16); Aspartate Aminotrans (AST/SGOT 8 U/L (12-37); Bilirubin, Total 0.4 mg/dL (0.1-1.0); Blood Urea Nitrogen 15 mg/dL (8-24); Bun/Creatinine Ratio 17.8 (12.0-20.0); CO2, Blood 29 mmol/L (21-32); Calcium, Blood 9.1 mg/dL (8.5-10.1); Chloride, Blood 110 mmol/L (98-108); Creatinine, Blood 0.85 mg/dL (0.40-1.00); Glomerular Filtration Rate >60 (60-); Glucose, Blood 83 mg/dL (70-99); Potassium, Blood 3.9 mmol/L (3.5-5.5); Sodium, Blood 143 mmol/L (136-145); Total Protein, Blood 7.3 g/dL (6.4-8.2)
[2019-04-08] MEDS ORDERED: Motrin100 MG/5 M PO (15:06)
[2019-04-08] MEDS ORDERED: NYST237S MT (15:06)
== END 2019-02-26 00:40 | disposition home or self-care (01) ==
LOC: ER 20:40
PROVIDERS: Emergency Medicine
DX: G43.909 Migraine, unspecified, not intractable, without status migrainosus (principal); J44.9 Chronic obstructive pulmonary disease, unspecified; I10 Essential (primary) hypertension; E11.9 Type 2 diabetes mellitus without complications; F17.210 Nicotine dependence, cigarettes, uncomplicated; Z79.899 Other long term (current) drug therapy
CPT/HCPCS: 36415; 80053; 83690; 85025; 96374; 96375; 99283-25; J1630; J1885; J2550

== ENCOUNTER 2019-03-04 12:16 | Emergency (ER) | payer OTHER ==
[~2019-03-04] VITALS: Ht 157.5 cm; Wt 72.6 kg
[2019-03-04] MEDS ORDERED: Acetaminophen-1 EAC1 PO (12:24)
[2019-03-04] MEDS ORDERED: Robaxin500 MG PO (12:47)
[2019-04-08] MEDS ORDERED: Motrin100 MG/5 M PO (15:06)
[2019-04-08] MEDS ORDERED: NYST237S MT (15:06)
== END 2019-03-04 13:15 | disposition home or self-care (01) ==
LOC: ER 12:16
DX: R51 Headache (principal); Z79.899 Other long term (current) drug therapy; J44.9 Chronic obstructive pulmonary disease, unspecified; I10 Essential (primary) hypertension; E11.9 Type 2 diabetes mellitus without complications; F17.210 Nicotine dependence, cigarettes, uncomplicated
CPT/HCPCS: 36415; 93005; 93010; 96374; 96375; 99284-25; J1885; J2550

== ENCOUNTER 2019-03-06 21:21 | Emergency (ER) | payer OTHER ==
[~2019-03-06] VITALS: Ht 157.5 cm; Wt 77.1 kg
[~2019-03-06 21:21] MED LIST changes: +Acetaminophen-1 EAC1 PO
[2019-04-08] MEDS ORDERED: Motrin100 MG/5 M PO (15:06)
[2019-04-08] MEDS ORDERED: NYST237S MT (15:06)
== END 2019-03-06 22:12 | disposition home or self-care (01) ==
LOC: ER 21:21
DX: K13.79 Other lesions of oral mucosa (principal); R51 Headache; Z79.899 Other long term (current) drug therapy; J44.9 Chronic obstructive pulmonary disease, unspecified; I10 Essential (primary) hypertension; E11.9 Type 2 diabetes mellitus without complications; F17.210 Nicotine dependence, cigarettes, uncomplicated
CPT/HCPCS: 99283

== ENCOUNTER 2019-03-10 19:39 | Emergency (ER) | payer OTHER ==
[~2019-03-10] VITALS: Ht 157.5 cm; Wt 77.1 kg
[2019-04-08] MEDS ORDERED: Motrin100 MG/5 M PO (15:06)
[2019-04-08] MEDS ORDERED: NYST237S MT (15:06)
== END 2019-03-10 20:51 | disposition home or self-care (01) ==
LOC: ER 19:39
DX: R51 Headache (principal); I10 Essential (primary) hypertension; E11.9 Type 2 diabetes mellitus without complications; J44.9 Chronic obstructive pulmonary disease, unspecified; F17.200 Nicotine dependence, unspecified, uncomplicated; Z79.899 Other long term (current) drug therapy
CPT/HCPCS: 93005; 93010; 96372; 99283-25; J1200; J1885; J2550

== ENCOUNTER 2019-03-21 08:03 | Emergency (ER) | payer OTHER ==
[~2019-03-21] VITALS: Ht 160 cm; Wt 86.2 kg
[2019-03-21] MEDS ORDERED: NYST237S MT (08:44)
[2019-03-21] MEDS ORDERED: BENZ100A PO (08:44)
[2019-04-08] MEDS ORDERED: Motrin100 MG/5 M PO (15:06)
[2019-04-08] MEDS ORDERED: NYST237S MT (15:06)
== END 2019-03-21 08:57 | disposition home or self-care (01) ==
LOC: ER 08:03
DX: K13.79 Other lesions of oral mucosa (principal); Z79.899 Other long term (current) drug therapy; J44.9 Chronic obstructive pulmonary disease, unspecified; I10 Essential (primary) hypertension; E11.9 Type 2 diabetes mellitus without complications; F17.200 Nicotine dependence, unspecified, uncomplicated
CPT/HCPCS: 99283

== ENCOUNTER 2019-03-25 11:07 | Emergency (ER) | payer OTHER ==
[~2019-03-25] VITALS: Ht 157.5 cm; Wt 77.1 kg
[2019-03-25] MEDS ORDERED: Zofran4 MG PO (11:28)
[2019-04-08] MEDS ORDERED: NYST237S MT (15:06)
[2019-04-08] MEDS ORDERED: Motrin100 MG/5 M PO (15:06)
== END 2019-03-25 12:00 | disposition home or self-care (01) ==
LOC: ER 11:07
DX: R10.11 Right upper quadrant pain (principal); R11.0 Nausea; Z79.899 Other long term (current) drug therapy; J44.9 Chronic obstructive pulmonary disease, unspecified; I10 Essential (primary) hypertension; E11.9 Type 2 diabetes mellitus without complications; F17.200 Nicotine dependence, unspecified, uncomplicated
CPT/HCPCS: 96374; 99283-25; J1885

== ENCOUNTER 2019-03-26 16:44 | Emergency (ER) | payer OTHER ==
[~2019-03-26] VITALS: Ht 157.5 cm; Wt 81.7 kg
[2019-04-08] MEDS ORDERED: Motrin100 MG/5 M PO (15:06)
[2019-04-08] MEDS ORDERED: NYST237S MT (15:06)
== END 2019-03-26 17:55 | disposition home or self-care (01) ==
LOC: ER 16:44
DX: K13.79 Other lesions of oral mucosa (principal); J44.9 Chronic obstructive pulmonary disease, unspecified; I10 Essential (primary) hypertension; E11.9 Type 2 diabetes mellitus without complications; F17.210 Nicotine dependence, cigarettes, uncomplicated; Z79.899 Other long term (current) drug therapy
CPT/HCPCS: 99282

== ENCOUNTER 2019-04-02 23:04 | Emergency (ER) | payer OTHER ==
[~2019-04-02] VITALS: Ht 157.5 cm; Wt 81.7 kg
[2019-04-08] MEDS ORDERED: NYST237S MT (15:06)
[2019-04-08] MEDS ORDERED: Motrin100 MG/5 M PO (15:06)
== END 2019-04-03 02:44 | disposition home or self-care (01) ==
LOC: ER 23:04
DX: M25.561 Pain in right knee (principal); M25.562 Pain in left knee; Z79.899 Other long term (current) drug therapy; J44.9 Chronic obstructive pulmonary disease, unspecified; I10 Essential (primary) hypertension; E11.9 Type 2 diabetes mellitus without complications; F17.200 Nicotine dependence, unspecified, uncomplicated
CPT/HCPCS: 96372; 99283-25; J1885

== ENCOUNTER 2019-04-06 18:36 | Emergency (ER) | payer OTHER ==
[~2019-04-06] VITALS: Ht 157.5 cm; Wt 77.1 kg
[2019-04-06] MEDS ORDERED: NYST237S MT (19:34)
[2019-04-06] MEDS ORDERED: Robaxin-750750 MG PO ×2 (19:34→20:12)
[2019-04-06] MEDS ORDERED: Phenergan6.25 MG/5 PO (20:11)
[2019-04-08] MEDS ORDERED: NYST237S MT (15:06)
[2019-04-08] MEDS ORDERED: Motrin100 MG/5 M PO (15:06)
== END 2019-04-06 20:05 | disposition home or self-care (01) ==
LOC: ER 18:36
DX: K13.79 Other lesions of oral mucosa (principal); J44.9 Chronic obstructive pulmonary disease, unspecified; I10 Essential (primary) hypertension; E11.9 Type 2 diabetes mellitus without complications; G89.29 Other chronic pain; Z79.899 Other long term (current) drug therapy; F17.200 Nicotine dependence, unspecified, uncomplicated
CPT/HCPCS: 96372; 99283-25; J1885

== ENCOUNTER → 2019-04-08 14:25 | Emergency (ER) | payer OTHER ==
[~2019-04-08] VITALS: Ht 157.5 cm; Wt 77.1 kg
[~2019-04-08 14:25] MED LIST changes: +Motrin100 MG/5 M PO; +NYST237S PO
== END | disposition home or self-care (01) ==
LOC: ER 14:25
DX: C06.9 Malignant neoplasm of mouth, unspecified (principal); E11.9 Type 2 diabetes mellitus without complications; I10 Essential (primary) hypertension; J44.9 Chronic obstructive pulmonary disease, unspecified; F17.200 Nicotine dependence, unspecified, uncomplicated; Z79.899 Other long term (current) drug therapy
CPT/HCPCS: 99282

== ENCOUNTER 2019-04-11 16:55 | Emergency (ER) | payer OTHER ==
[~2019-04-11] VITALS: Ht 157.5 cm; Wt 81.7 kg
[~2019-04-11 16:55] MED LIST changes: -NYST237S PO
== END 2019-04-11 19:31 | disposition home or self-care (01) ==
LOC: ER 16:55
DX: K13.79 Other lesions of oral mucosa (principal); Z76.0 Encounter for issue of repeat prescription; Z79.899 Other long term (current) drug therapy; J44.9 Chronic obstructive pulmonary disease, unspecified; I10 Essential (primary) hypertension; E11.9 Type 2 diabetes mellitus without complications; F17.200 Nicotine dependence, unspecified, uncomplicated
CPT/HCPCS: 99283

== ENCOUNTER 2019-04-14 09:39 | Emergency (ER) | payer OTHER ==
[~2019-04-14] VITALS: Ht 157.5 cm; Wt 77.1 kg
[2019-04-14] MEDS ORDERED: NYST237S PO (11:35)
[2019-04-14] MEDS ORDERED: IBUP100S PO (11:35)
== END 2019-04-14 11:53 | disposition home or self-care (01) ==
LOC: ER 09:39
DX: K13.79 Other lesions of oral mucosa (principal); E11.9 Type 2 diabetes mellitus without complications; I10 Essential (primary) hypertension; F17.200 Nicotine dependence, unspecified, uncomplicated; Z85.819 Personal history of malignant neoplasm of unspecified site of lip, oral cavity, and pharynx; Z79.899 Other long term (current) drug therapy
CPT/HCPCS: 99283

== ENCOUNTER 2019-05-08 17:29 | Emergency (ER) | payer OTHER ==
[~2019-05-08] VITALS: Ht 157.5 cm; Wt 74.8 kg
[~2019-05-08 17:29] MED LIST changes: +NYST237S PO
== END 2019-05-08 18:10 | disposition home or self-care (01) ==
LOC: ER 17:29
DX: Z76.5 Malingerer [conscious simulation] (principal); E11.9 Type 2 diabetes mellitus without complications; I10 Essential (primary) hypertension; J44.9 Chronic obstructive pulmonary disease, unspecified; F17.210 Nicotine dependence, cigarettes, uncomplicated; Z79.899 Other long term (current) drug therapy
CPT/HCPCS: 99283

== ENCOUNTER 2019-05-28 14:11 | Emergency (ER) | payer OTHER ==
[~2019-05-28] VITALS: Ht 157.5 cm; Wt 77.1 kg
[2019-05-28] MEDS ORDERED: IBUP100S PO (14:40)
[2019-05-28] MEDS ORDERED: NYST237S PO (14:40)
== END 2019-05-28 15:02 | disposition home or self-care (01) ==
LOC: ER 14:11
DX: J02.9 Acute pharyngitis, unspecified (principal); J44.9 Chronic obstructive pulmonary disease, unspecified; I10 Essential (primary) hypertension; E11.9 Type 2 diabetes mellitus without complications; F17.210 Nicotine dependence, cigarettes, uncomplicated; Z76.5 Malingerer [conscious simulation]; Z79.899 Other long term (current) drug therapy; Z79.891 Long term (current) use of opiate analgesic
CPT/HCPCS: 96374; 99283-25; J1885

== ENCOUNTER 2019-06-14 12:41 | Emergency (ER) | payer OTHER ==
[~2019-06-14] VITALS: Ht 157.5 cm; Wt 72.6 kg
[2019-06-14] MEDS ORDERED: IBUP400 PO (15:07)
[2019-06-14] MEDS ORDERED: PROM25 PO (15:07)
== END 2019-06-14 15:30 | disposition home or self-care (01) ==
LOC: ER 12:41
DX: S93.402A Sprain of unspecified ligament of left ankle, initial encounter (principal); I10 Essential (primary) hypertension; E11.9 Type 2 diabetes mellitus without complications; J44.9 Chronic obstructive pulmonary disease, unspecified; Z85.819 Personal history of malignant neoplasm of unspecified site of lip, oral cavity, and pharynx; Z87.442 Personal history of urinary calculi; Z79.899 Other long term (current) drug therapy; X58.XXXA Exposure to other specified factors, initial encounter
CPT/HCPCS: 29515; 73610; 99283-25

== ENCOUNTER 2019-07-02 10:58 | Emergency (ER) | payer OTHER ==
[~2019-07-02] VITALS: Ht 157.5 cm; Wt 77.1 kg
[~2019-07-02 10:58] MED LIST changes: +IBUP400 PO
[2019-07-02] MEDS ORDERED: LOSARTAN POTASS50 MG PO (11:13)
[2019-07-02] MEDS ORDERED: BUSP10 PO (11:13)
[2019-07-02] MEDS ORDERED: NYST100000 SS (13:05)
== END 2019-07-02 13:20 | disposition home or self-care (01) ==
LOC: ER 10:58
DX: R07.89 Other chest pain (principal); G43.909 Migraine, unspecified, not intractable, without status migrainosus; B37.0 Candidal stomatitis; R06.02 Shortness of breath; E66.9 Obesity, unspecified; Z68.31 Body mass index [BMI] 31.0-31.9, adult; J44.9 Chronic obstructive pulmonary disease, unspecified; I10 Essential (primary) hypertension; E11.9 Type 2 diabetes mellitus without complications; F17.210 Nicotine dependence, cigarettes, uncomplicated; Z79.899 Other long term (current) drug therapy
CPT/HCPCS: 93005; 93010; 96372; 99283-25; J1885

== ENCOUNTER 2019-07-04 16:21 | Emergency (ER) | payer OTHER ==
[~2019-07-04] VITALS: Ht 157.5 cm; Wt 81.7 kg
[~2019-07-04 16:21] MED LIST changes: +BUSP10 PO; +LOSARTAN POTASS50 MG PO; +NYST100000 SS
== END 2019-07-04 18:59 | disposition home or self-care (01) ==
LOC: ER 16:21
DX: K08.89 Other specified disorders of teeth and supporting structures (principal); G89.29 Other chronic pain; J44.9 Chronic obstructive pulmonary disease, unspecified; I10 Essential (primary) hypertension; E11.9 Type 2 diabetes mellitus without complications; F17.210 Nicotine dependence, cigarettes, uncomplicated; Z76.5 Malingerer [conscious simulation]; Z79.899 Other long term (current) drug therapy; Z79.51 Long term (current) use of inhaled steroids
CPT/HCPCS: 99283

== ENCOUNTER 2019-07-20 20:13 | Emergency (ER) | payer OTHER ==
[~2019-07-20] VITALS: Ht 160 cm; Wt 81.7 kg
[2019-07-20] MEDS ORDERED: Phenergan6.25 MG/5 PO (21:37)
== END 2019-07-20 21:46 | disposition home or self-care (01) ==
LOC: ER 20:13
DX: K13.70 Unspecified lesions of oral mucosa (principal); J44.9 Chronic obstructive pulmonary disease, unspecified; E11.9 Type 2 diabetes mellitus without complications; I25.10 Atherosclerotic heart disease of native coronary artery without angina pectoris; H40.9 Unspecified glaucoma; Z85.819 Personal history of malignant neoplasm of unspecified site of lip, oral cavity, and pharynx
CPT/HCPCS: 96372; 99283; J1200

== ENCOUNTER 2019-07-31 14:18 | Observation (INO) | payer OTHER ==
[~2019-07-31] VITALS: Ht 157.5 cm; Wt 77.1 kg
[2019-07-31 15:13] LABS: BASOPHILS ABSOLUTE AUTO 0.07 K/mm3 (0.00-0.23); BASOPHILS PERCENT AUTO 1 % (0-2); EOSINOPHILS ABSOLUTE AUTO 0.22 K/mm3 (0.00-0.68); EOSINOPHILS PERCENT AUTO 2 % (0-6); Hematocrit 41.1 % (33.0-51.0); Hemoglobin 12.9 g/dL (11.5-16.0); IMMATURE GRAN ABSOLUTE AUTO 0.04 K/mm3 (0.00-0.10); IMMATURE GRAN PERCENT AUTO 0 % (0-1); LYMPHOCYTES ABSOLUTE AUTO 1.77 K/mm3 (0.84-5.20); LYMPHOCYTES PERCENT AUTO 19 % (21-46); MONOCYTES ABSOLUTE AUTO 0.78 K/mm3 (0.16-1.47); MONOCYTES PERCENT AUTO 8 % (4-13); Mean Corpuscular HGB 28.6 pg (26.0-34.0); Mean Corpuscular HGB Conc 31.4 g/dL (31.5-36.5); Mean Corpuscular Volume 91 fL (80-100); Mean Platelet Volume 12.4 fL (9.1-12.4); NEUTROPHILS ABSOLUTE AUTO 6.71 K/mm3 (1.96-9.15); NEUTROPHILS PERCENT AUTO 70 % (41-73); Platelet Count 224 K/mm3 (150-400); RDW Standard Deviation 46.5 fL (35.1-46.3); Red Blood Cell Count 4.51 M/mm3 (3.80-5.20); White Blood Cell Count 9.59 K/mm3 (4.00-11.30)
[2019-07-31 15:30] LABS: Alanine Aminotransfer (ALT/SGP 20 U/L (12-78); Albumin, Blood 3.3 g/dL (3.4-5.0); Albumin/Globulin Ratio 0.8 (0.8-1.8); Alk Phos 97 U/L (50-136); Anion Gap 6 mmol/L (6-16); Aspartate Aminotrans (AST/SGOT 13 U/L (12-37); Bilirubin, Total 0.4 mg/dL (0.1-1.0); Blood Urea Nitrogen 17 mg/dL (8-24); CO2, Blood 24 mmol/L (21-32); Calcium, Blood 8.4 mg/dL (8.5-10.1); Chloride, Blood 113 mmol/L (98-108); Creatinine, Blood 0.77 mg/dL (0.40-1.00); Globulin, Blood 3.9 g/dL (2.2-4.0); Glomerular Filtration Rate >60 (60-); Glucose, Blood 115 mg/dL (70-99); Potassium, Blood 3.6 mmol/L (3.5-5.5); Sodium, Blood 143 mmol/L (136-145); Total Protein, Blood 7.2 g/dL (6.4-8.2)
[2019-07-31 17:19] LABS: Source, Urine Clean Catch
[2019-07-31 17:22] LABS: Bilirubin, Urine Neg (Neg); Blood, Urine 5+ (Neg); Glucose Qualitative, Urine Neg (Neg); Ketones, Urine Neg (Neg); Leukocyte Esterase, Urine 3+ (Neg); Nitrite, Urine Neg (Neg); Protein, Urine 3+ (Neg); Specific Gravity, Urine 1.025 (1.003-1.022); Urobilinogen, Urine NORM (Normal)
[2019-07-31 17:33] LABS: Appearance, Urine Hazy (Clear); Color, Urine Yellow (P-Yellow)
[2019-07-31 17:34] LABS: Bacteria Many /hpf; Mucus Light (0-Heavy); Squamous Epithelial Cells Few /hpf (Few)
[2019-07-31] MEDS ORDERED: Xylocaine5 M1 MM (21:26)
[2019-07-31] MEDS ORDERED: NYST237S MT (21:27)
[2019-08-02] MEDS ORDERED: ALBU90OI INH (08:46)
[2019-08-02] MEDS ORDERED: CEPH500 PO (08:46)
== END 2019-08-01 08:18 | disposition home or self-care (01) ==
LOC: ER 14:18 → EOR 14:19
PROVIDERS: Physician Assistant; ADMIT Emergency Medicine
DX: F32.9 Major depressive disorder, single episode, unspecified (principal); N39.0 Urinary tract infection, site not specified; I10 Essential (primary) hypertension; J44.9 Chronic obstructive pulmonary disease, unspecified; G43.909 Migraine, unspecified, not intractable, without status migrainosus; E11.39 Type 2 diabetes mellitus with other diabetic ophthalmic complication; H40.9 Unspecified glaucoma; H42 Glaucoma in diseases classified elsewhere; G89.29 Other chronic pain; I25.10 Atherosclerotic heart disease of native coronary artery without angina pectoris; Z79.51 Long term (current) use of inhaled steroids; Z79.899 Other long term (current) drug therapy; Z87.442 Personal history of urinary calculi; Z76.5 Malingerer [conscious simulation]
CPT/HCPCS: 36415; 80053; 81001; 85025; 87086; 99285; A9270-GY; G0378

== ENCOUNTER 2019-08-02 08:08 | Emergency (ER) | payer OTHER ==
[~2019-08-02] VITALS: Ht 162.6 cm; Wt 102.1 kg
[~2019-08-02 08:08] MED LIST changes: +Xylocaine5 M1 MM
[2019-08-02] MEDS ORDERED: ALBU90OI INH (08:46)
[2019-08-02] MEDS ORDERED: CEPH500 PO (08:46)
== END 2019-08-02 09:11 | disposition home or self-care (01) ==
LOC: ER 08:08
DX: R51 Headache (principal); R06.2 Wheezing; N39.0 Urinary tract infection, site not specified; I10 Essential (primary) hypertension; E11.9 Type 2 diabetes mellitus without complications; J44.9 Chronic obstructive pulmonary disease, unspecified; F17.210 Nicotine dependence, cigarettes, uncomplicated; Z79.899 Other long term (current) drug therapy
CPT/HCPCS: 71045; 94640; 96372; 99285-25; A9270-GY; J1885; Q0163

== ENCOUNTER 2019-08-04 14:48 | Emergency (ER) | payer OTHER ==
[~2019-08-04] VITALS: Ht 157.5 cm; Wt 81.7 kg
[2019-08-04] MEDS ORDERED: ONDA4ODT MM (17:09)
[2019-08-04] MEDS ORDERED: Robaxin-750750 MG PO (17:09)
[2019-08-04] MEDS ORDERED: BUSP10 PO (17:09)
== END 2019-08-04 17:32 | disposition home or self-care (01) ==
LOC: ER 14:48
DX: R19.7 Diarrhea, unspecified (principal); F41.9 Anxiety disorder, unspecified; Z76.0 Encounter for issue of repeat prescription; I10 Essential (primary) hypertension; E11.9 Type 2 diabetes mellitus without complications; I25.10 Atherosclerotic heart disease of native coronary artery without angina pectoris; J44.9 Chronic obstructive pulmonary disease, unspecified; Z79.899 Other long term (current) drug therapy; Z79.51 Long term (current) use of inhaled steroids
CPT/HCPCS: 99283

== ENCOUNTER 2019-08-24 18:37 | Emergency (ER) | payer OTHER ==
[~2019-08-24] VITALS: Ht 157.5 cm; Wt 84.8 kg
== END 2019-08-24 21:43 | disposition home or self-care (01) ==
LOC: ER 18:37
DX: K13.79 Other lesions of oral mucosa (principal); Z76.5 Malingerer [conscious simulation]; Z79.899 Other long term (current) drug therapy; J44.9 Chronic obstructive pulmonary disease, unspecified; I10 Essential (primary) hypertension; E11.9 Type 2 diabetes mellitus without complications; F17.210 Nicotine dependence, cigarettes, uncomplicated
CPT/HCPCS: 99283

== ENCOUNTER 2019-08-26 14:10 | Emergency (ER) | payer OTHER ==
[~2019-08-26] VITALS: Ht 157.5 cm; Wt 81.7 kg
[2019-08-26] MEDS ORDERED: Phenergan6.25 MG/5 PO (15:06)
== END 2019-08-26 15:46 | disposition home or self-care (01) ==
LOC: ER 14:10
DX: C06.9 Malignant neoplasm of mouth, unspecified (principal); I10 Essential (primary) hypertension; E11.9 Type 2 diabetes mellitus without complications; J44.9 Chronic obstructive pulmonary disease, unspecified; F17.200 Nicotine dependence, unspecified, uncomplicated; Z76.5 Malingerer [conscious simulation]; Z79.899 Other long term (current) drug therapy
CPT/HCPCS: 96372; 99283-25; J1200; J1630

== ENCOUNTER 2019-08-30 19:45 | Observation (INO) | payer OTHER ==
[~2019-08-30] VITALS: Ht 160 cm; Wt 87.0 kg
[2019-08-30 22:08] LABS: BASOPHILS ABSOLUTE AUTO 0.07 K/mm3 (0.00-0.23); BASOPHILS PERCENT AUTO 1 % (0-2); EOSINOPHILS ABSOLUTE AUTO 0.33 K/mm3 (0.00-0.68); EOSINOPHILS PERCENT AUTO 4 % (0-6); Hematocrit 36.8 % (33.0-51.0); Hemoglobin 11.9 g/dL (11.5-16.0); IMMATURE GRAN ABSOLUTE AUTO 0.06 K/mm3 (0.00-0.10); IMMATURE GRAN PERCENT AUTO 1 % (0-1); LYMPHOCYTES ABSOLUTE AUTO 1.54 K/mm3 (0.84-5.20); LYMPHOCYTES PERCENT AUTO 19 % (21-46); MONOCYTES ABSOLUTE AUTO 1.24 K/mm3 (0.16-1.47); MONOCYTES PERCENT AUTO 15 % (4-13); Mean Corpuscular HGB 29.4 pg (26.0-34.0); Mean Corpuscular HGB Conc 32.3 g/dL (31.5-36.5); Mean Corpuscular Volume 91 fL (80-100); Mean Platelet Volume 11.8 fL (9.1-12.4); NEUTROPHILS ABSOLUTE AUTO 4.92 K/mm3 (1.96-9.15); NEUTROPHILS PERCENT AUTO 60 % (41-73); Platelet Count 193 K/mm3 (150-400); RDW Coefficient Variation 13.2 % (11.7-14.2); RDW Standard Deviation 44.5 fL (35.1-46.3); Red Blood Cell Count 4.05 M/mm3 (3.80-5.20); White Blood Cell Count 8.16 K/mm3 (4.00-11.30)
[2019-08-30 22:29] LABS: Alanine Aminotransfer (ALT/SGP 15 U/L (12-78); Albumin, Blood 2.9 g/dL (3.4-5.0); Albumin/Globulin Ratio 0.8 (0.8-1.8); Alk Phos 74 U/L (50-136); Anion Gap 7 mmol/L (6-16); Aspartate Aminotrans (AST/SGOT 10 U/L (12-37); Bilirubin, Total 0.1 mg/dL (0.1-1.0); Blood Urea Nitrogen 12 mg/dL (8-24); CO2, Blood 22 mmol/L (21-32); Calcium, Blood 7.9 mg/dL (8.5-10.1); Chloride, Blood 116 mmol/L (98-108); Creatinine, Blood 0.75 mg/dL (0.40-1.00); Globulin, Blood 3.5 g/dL (2.2-4.0); Glomerular Filtration Rate >60 (60-); Glucose, Blood 119 mg/dL (70-99); Potassium, Blood 3.2 mmol/L (3.5-5.5); Sodium, Blood 145 mmol/L (136-145); Total Protein, Blood 6.4 g/dL (6.4-8.2); Troponin I 0.061 ng/mL (0.000-0.040)
--- NOTE | 2019-08-31 01:25 | NUR ---
RECEIVED REPORT FROM TREY MANCINI RN. PT ARRIVED TO RM 301 VIA GURNEY. PT ALERT AND ORIENTED ABLE TO STATE NEEDS. SPEECH HARD TO UNDERSTAND DUE TO PT CONTINUALLY ROLLS TONGUE, CHRONIC. RESP EVEN ON RA. 05/24 MOUTH PAIN. 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 AMBULATES WITH SLOW, SHUFFLING GAIT. WILL CONTINUE TO MONITOR AND PROVIDE CARE. CALL LT IN REACH.
--- NOTE | 2019-08-31 03:53 | NUR ---
PT HAD BEEN RESTING COMFORTABLY. WOKE UP DEMANDING ALL THE MEDS SHE TAKES. PT WANTS IV PAIN MEDS AND WANTS HER ATIVAN AND IF SHE DOESN'T GET THEM SHE'S LEAVING. INFORMED PT THAT WAS HER RIGHT IF SHE WANTED TO LEAVE BUT SHE WOULD BE LEAVING AGAINST MEDICAL ADVICE, PT STATES SHE DOESN'T WANT TO LEAVE. ALSO SAYS SHE'S BEEN OUT OF HER MEDS FOR AHILE. WILL PLACE A CALL TO DR AND UPDATE PT'S CONDITION.
--- NOTE | 2019-08-31 04:09 | NUR ---
SHIFT SUMMARY: ER ADMIT AT 0125. ALERT AND ORIENTED. LABILE AFFECT, EASILY ANGERED. FIXATED ON ATIVAN AND PAIN MEDICATION. WANTS IT NOW. ON RA. BP ELEVATED, PT IS AGITATED OFF AND ON. RESTS COMFORTABLY FOR AWHILE AND WAKES UP AND IS FOLLOWING STAFF DOWN THE AMBRIZ WANTING ATIVAN. SPEECH IS HARD TO UNDERSTAND, PT ROLLS HER TONGUE CONTINUALLY AROUND HER MOUTH SHE'S TALKING. AMBULATES MOSTLY WITHOUT ASSISTANCE. NO CRITIAL CHANGES. WILL MONITOR AND PROVIDE CARE UNTIL SHIFT REPORT.
--- NOTE | 2019-08-31 04:44 | NUR ---
PT LEFT TO GO OUTSIDE TO SMOKE USING A FWW. COULD NOT PERSUADE PT REMAIN IN ROOM, PT STATES SHE JUST WANTS TO SMOKE. OFFERED TO PUT NICOTINE PATCH ON PT AND PT REFUSED. STATES SHE'S GOING TO SMOKE AND THEN WHEN SHE GETS BACK SHE WILL LET THIS RN PUT THE PATCH ON. ADVISED PT THAT FOR HER SAFETY IT IS BEST NOT TO GO OUTSIDE. PT REFUSED.
[2019-08-31 05:17] LABS: BASOPHILS ABSOLUTE AUTO 0.05 K/mm3 (0.00-0.23); BASOPHILS PERCENT AUTO 1 % (0-2); EOSINOPHILS ABSOLUTE AUTO 0.42 K/mm3 (0.00-0.68); EOSINOPHILS PERCENT AUTO 5 % (0-6); Hematocrit 37.8 % (33.0-51.0); IMMATURE GRAN ABSOLUTE AUTO 0.04 K/mm3 (0.00-0.10); IMMATURE GRAN PERCENT AUTO 1 % (0-1); LYMPHOCYTES ABSOLUTE AUTO 1.43 K/mm3 (0.84-5.20); LYMPHOCYTES PERCENT AUTO 17 % (21-46); MONOCYTES ABSOLUTE AUTO 1.26 K/mm3 (0.16-1.47); MONOCYTES PERCENT AUTO 15 % (4-13); Mean Corpuscular HGB 28.8 pg (26.0-34.0); Mean Corpuscular HGB Conc 31.7 g/dL (31.5-36.5); Mean Corpuscular Volume 91 fL (80-100); Mean Platelet Volume 12.3 fL (9.1-12.4); NEUTROPHILS ABSOLUTE AUTO 5.08 K/mm3 (1.96-9.15); NEUTROPHILS PERCENT AUTO 61 % (41-73); Platelet Count 213 K/mm3 (150-400); RDW Coefficient Variation 13.6 % (11.7-14.2); RDW Standard Deviation 45.4 fL (35.1-46.3); Red Blood Cell Count 4.16 M/mm3 (3.80-5.20); White Blood Cell Count 8.28 K/mm3 (4.00-11.30)
[2019-08-31 05:45] LABS: Anion Gap 7 mmol/L (6-16); Blood Urea Nitrogen 12 mg/dL (8-24); Bun/Creatinine Ratio 14.1 (12.0-20.0); CO2, Blood 21 mmol/L (21-32); Chloride, Blood 116 mmol/L (98-108); Creatinine, Blood 0.85 mg/dL (0.40-1.00); Glomerular Filtration Rate >60 (60-); Glucose, Blood 107 mg/dL (70-99); Potassium, Blood 3.5 mmol/L (3.5-5.5); Sodium, Blood 144 mmol/L (136-145)
[2019-08-31 08:58] LABS: U Amphetamine Screen DETECTED; U Barbituate Screen Not Detected; U Benzodiazapine Screen DETECTED; U Buprenorphine Screen Not Detected; U Cannabinoids Screen Not Detected; U Cocaine Screen Not Detected; U Methadone Screen Not Detected; U Methamphetamine Screen DETECTED; U Opiates Screen DETECTED; U Oxycodone Screen Not Detected; U Phencyclidine Screen Not Detected; U Propoxyphene Screen Not Detected
--- NOTE | 2019-08-31 09:44 | NUR ---
PT REQUESTING IV PAIN MEDS PT REQUESTING A "PAIN SHOT" PT OFFERED TYLENOL #3 ORDERED. PT WAS TAKING HER TYLENOL #3 PT STATED SHE REALLY NEEDED A "PAIN SHOT" PT EDUCATED THAT WE WILL SEE IF TYLENOL #3 HELPS FIRST AND THEN TALK TO DR. TOMLINSON. WILL CONTINUE TO MONITOR.
[2019-08-31] MEDS ORDERED: CARISOPRODOL250 MG PO (12:36)
--- NOTE | 2019-08-31 12:59 | NUR ---
PT DISCHARGED PT DISCHARGED AT 1259. PT IN STABLE CONDITION. PT EDUCATED ON DC INSTRUCTIONS. DC INSTRUCTIONS SENT WITH PT. PT ESCORTED OUT BY [facility] [employer]. TO BE PICKED UP BY [facility]. NO CHANGES IN ASSESSMENT PROIR TO DC. PT SENT WITH HARD SCRIPT.
== END 2019-08-31 12:59 | disposition home or self-care (01) ==
LOC: ER 19:45 → MEDS 19:46
PROVIDERS: Emergency Medicine; Hospitalist; Nurse Practitioner Acute Care; ADMIT Internal Medicine
DX: R07.9 Chest pain, unspecified (principal); R79.89 Other specified abnormal findings of blood chemistry; E87.6 Hypokalemia; K13.70 Unspecified lesions of oral mucosa; F17.210 Nicotine dependence, cigarettes, uncomplicated; I10 Essential (primary) hypertension; E11.9 Type 2 diabetes mellitus without complications; E66.9 Obesity, unspecified; Z68.31 Body mass index [BMI] 31.0-31.9, adult; Z79.51 Long term (current) use of inhaled steroids; Z79.899 Other long term (current) drug therapy
CPT/HCPCS: 36415; 71046; 80048; 80053; 83735; 83880; 84484; 85025; 93005; 93010; 94640; 94644; 94760; 96361; 96365; 96372; 96375; 99285-25; G0378; J1650; J3475; J3480; J7030

== ENCOUNTER 2019-09-04 13:20 | Emergency (ER) | payer OTHER ==
[~2019-09-04] VITALS: Ht 157.5 cm; Wt 84.8 kg
[~2019-09-04 13:20] MED LIST changes: +CARISOPRODOL250 MG PO
[2019-09-04 16:34] LABS: BASOPHILS ABSOLUTE AUTO 0.05 K/mm3 (0.00-0.23); BASOPHILS PERCENT AUTO 0 % (0-2); EOSINOPHILS ABSOLUTE AUTO 0.23 K/mm3 (0.00-0.68); EOSINOPHILS PERCENT AUTO 2 % (0-6); Hematocrit 41.2 % (33.0-51.0); Hemoglobin 13.1 g/dL (11.5-16.0); IMMATURE GRAN PERCENT AUTO 1 % (0-1); LYMPHOCYTES ABSOLUTE AUTO 2.42 K/mm3 (0.84-5.20); LYMPHOCYTES PERCENT AUTO 20 % (21-46); MONOCYTES ABSOLUTE AUTO 1.04 K/mm3 (0.16-1.47); MONOCYTES PERCENT AUTO 9 % (4-13); Mean Corpuscular HGB Conc 31.8 g/dL (31.5-36.5); Mean Corpuscular Volume 91 fL (80-100); Mean Platelet Volume 11.8 fL (9.1-12.4); NEUTROPHILS PERCENT AUTO 68 % (41-73); Platelet Count 231 K/mm3 (150-400); RDW Coefficient Variation 13.4 % (11.7-14.2); Red Blood Cell Count 4.52 M/mm3 (3.80-5.20); White Blood Cell Count 11.94 K/mm3 (4.00-11.30)
[2019-09-04 16:53] LABS: Troponin I <0.015 ng/mL (0.000-0.040)
[2019-09-04 16:54] LABS: Alanine Aminotransfer (ALT/SGP 15 U/L (12-78); Albumin, Blood 3.2 g/dL (3.4-5.0); Albumin/Globulin Ratio 0.8 (0.8-1.8); Alk Phos 77 U/L (50-136); Anion Gap 5 mmol/L (6-16); Aspartate Aminotrans (AST/SGOT 7 U/L (12-37); Bilirubin, Total 0.2 mg/dL (0.1-1.0); Blood Urea Nitrogen 17 mg/dL (8-24); Bun/Creatinine Ratio 19.5 (12.0-20.0); CO2, Blood 27 mmol/L (21-32); Calcium, Blood 8.6 mg/dL (8.5-10.1); Chloride, Blood 112 mmol/L (98-108); Creatinine, Blood 0.87 mg/dL (0.40-1.00); Globulin, Blood 4.2 g/dL (2.2-4.0); Glomerular Filtration Rate >60 (60-); Glucose, Blood 102 mg/dL (70-99); Potassium, Blood 3.2 mmol/L (3.5-5.5); Sodium, Blood 144 mmol/L (136-145); Total Protein, Blood 7.4 g/dL (6.4-8.2)
[2019-09-04] MEDS ORDERED: PROMETH-CODEIN 65 ML PO (18:58)
[2019-09-04] MEDS ORDERED: Prednisone20 MG PO (18:58)
== END 2019-09-04 19:46 | disposition home or self-care (01) ==
LOC: ER 13:20
PROVIDERS: Emergency Medicine
DX: J44.1 Chronic obstructive pulmonary disease with (acute) exacerbation (principal); I10 Essential (primary) hypertension; E11.9 Type 2 diabetes mellitus without complications; F17.210 Nicotine dependence, cigarettes, uncomplicated; Z79.899 Other long term (current) drug therapy
CPT/HCPCS: 36415; 71046; 80053; 84484; 85025; 93005; 93010; 94644; 94645; 96374; 96375; 99284-25; J0780; J1885; J2930

== ENCOUNTER 2019-10-01 11:37 | Emergency (ER) | payer OTHER ==
[~2019-10-01] VITALS: Ht 157.5 cm; Wt 81.7 kg
[~2019-10-01 11:37] MED LIST changes: +PROMETH-CODEIN 65 ML PO
[2019-10-01] MEDS ORDERED: Amoxicillin875 MG PO (16:03)
[2019-10-01] MEDS ORDERED: GUAIFENESIN-CODE5 ML PO (16:03)
== END 2019-10-01 16:29 | disposition home or self-care (01) ==
LOC: ER 11:37
DX: H66.92 Otitis media, unspecified, left ear (principal); G43.909 Migraine, unspecified, not intractable, without status migrainosus; R05 Cough; I10 Essential (primary) hypertension; E11.9 Type 2 diabetes mellitus without complications; J44.9 Chronic obstructive pulmonary disease, unspecified; F17.210 Nicotine dependence, cigarettes, uncomplicated; Z79.899 Other long term (current) drug therapy
CPT/HCPCS: 71046; 96372; 99283-25; J1885

== ENCOUNTER 2019-10-06 10:06 | Emergency (ER) | payer OTHER ==
[~2019-10-06] VITALS: Ht 157.5 cm; Wt 81.7 kg
[~2019-10-06 10:06] MED LIST changes: +Amoxicillin875 MG PO; +GUAIFENESIN-CODE5 ML PO
[2019-10-06] MEDS ORDERED: ERYT1OIN BOTHEYES (10:59)
== END 2019-10-06 11:30 | disposition home or self-care (01) ==
LOC: ER 10:06
DX: G43.909 Migraine, unspecified, not intractable, without status migrainosus (principal); R05 Cough; H10.9 Unspecified conjunctivitis; I10 Essential (primary) hypertension; J44.9 Chronic obstructive pulmonary disease, unspecified; E11.9 Type 2 diabetes mellitus without complications; F17.210 Nicotine dependence, cigarettes, uncomplicated; Z79.899 Other long term (current) drug therapy
CPT/HCPCS: 96372; 99283; J1200; J1630; J1885

== ENCOUNTER 2019-10-11 15:48 | Emergency (ER) | payer OTHER ==
[~2019-10-11] VITALS: Ht 157.5 cm; Wt 81.7 kg
[~2019-10-11 15:48] MED LIST changes: +ERYT1OIN BOTHEYES
[2019-10-11] MEDS ORDERED: ONDA4ODT MM (15:58)
[2019-10-11] MEDS ORDERED: Naprosyn500 MG PO (15:58)
== END 2019-10-11 16:01 | disposition home or self-care (01) ==
LOC: ER 15:48
DX: R05 Cough (principal); R51 Headache; I10 Essential (primary) hypertension; J44.9 Chronic obstructive pulmonary disease, unspecified; E11.9 Type 2 diabetes mellitus without complications; Z79.899 Other long term (current) drug therapy
CPT/HCPCS: 99283

== ENCOUNTER 2019-11-20 16:51 | Emergency (ER) | payer OTHER ==
[~2019-11-20] VITALS: Ht 160 cm; Wt 77.1 kg
[2019-11-20] MEDS ORDERED: Ultram50 MG PO (21:12)
== END 2019-11-20 21:19 | disposition home or self-care (01) ==
LOC: ER 16:51
DX: R07.9 Chest pain, unspecified (principal); G43.909 Migraine, unspecified, not intractable, without status migrainosus; I10 Essential (primary) hypertension; J44.9 Chronic obstructive pulmonary disease, unspecified; E11.9 Type 2 diabetes mellitus without complications; F17.210 Nicotine dependence, cigarettes, uncomplicated; Z79.899 Other long term (current) drug therapy
CPT/HCPCS: 71045; 84484; 93005; 93010; 96372; 99284-25; J1885; J2550

== ENCOUNTER 2019-11-29 13:01 | Emergency (ER) | payer OTHER ==
[~2019-11-29] VITALS: Ht 157.5 cm; Wt 79.4 kg
[2019-11-29 13:28] LABS: BASOPHILS ABSOLUTE AUTO 0.07 K/mm3 (0.00-0.23); BASOPHILS PERCENT AUTO 1 % (0-2); EOSINOPHILS ABSOLUTE AUTO 0.37 K/mm3 (0.00-0.68); EOSINOPHILS PERCENT AUTO 4 % (0-6); Hematocrit 45.3 % (33.0-51.0); Hemoglobin 13.8 g/dL (11.5-16.0); IMMATURE GRAN ABSOLUTE AUTO 0.03 K/mm3 (0.00-0.10); IMMATURE GRAN PERCENT AUTO 0 % (0-1); LYMPHOCYTES ABSOLUTE AUTO 1.37 K/mm3 (0.84-5.20); LYMPHOCYTES PERCENT AUTO 16 % (21-46); MONOCYTES ABSOLUTE AUTO 0.88 K/mm3 (0.16-1.47); MONOCYTES PERCENT AUTO 10 % (4-13); Mean Corpuscular HGB Conc 30.5 g/dL (31.5-36.5); Mean Corpuscular Volume 92 fL (80-100); Mean Platelet Volume 12.9 fL (9.1-12.4); NEUTROPHILS ABSOLUTE AUTO 5.95 K/mm3 (1.96-9.15); NEUTROPHILS PERCENT AUTO 69 % (41-73); Platelet Count 211 K/mm3 (150-400); RDW Coefficient Variation 14.9 % (11.7-14.2); Red Blood Cell Count 4.92 M/mm3 (3.80-5.20); White Blood Cell Count 8.67 K/mm3 (4.00-11.30)
[2019-11-29 13:46] LABS: Alanine Aminotransfer (ALT/SGP 18 U/L (12-78); Albumin, Blood 3.2 g/dL (3.4-5.0); Albumin/Globulin Ratio 0.8 (0.8-1.8); Alk Phos 85 U/L (50-136); Anion Gap 5 mmol/L (6-16); Aspartate Aminotrans (AST/SGOT 21 U/L (12-37); Bilirubin, Total 0.4 mg/dL (0.1-1.0); Blood Urea Nitrogen 12 mg/dL (8-24); Bun/Creatinine Ratio 14.3 (12.0-20.0); CO2, Blood 25 mmol/L (21-32); Calcium, Blood 8.9 mg/dL (8.5-10.1); Chloride, Blood 112 mmol/L (98-108); Creatinine, Blood 0.84 mg/dL (0.40-1.00); Globulin, Blood 3.8 g/dL (2.2-4.0); Glomerular Filtration Rate >60 (60-); Glucose, Blood 107 mg/dL (70-99); Potassium, Blood 4.7 mmol/L (3.5-5.5); Sodium, Blood 142 mmol/L (136-145); Troponin I <0.015 ng/mL (0.000-0.040)
[2019-11-29] MEDS ORDERED: Robaxin-750750 MG PO (14:51)
== END 2019-11-29 15:01 | disposition home or self-care (01) ==
LOC: ER 13:01
PROVIDERS: Emergency Medicine
DX: R07.9 Chest pain, unspecified (principal); J02.9 Acute pharyngitis, unspecified; R51 Headache; I10 Essential (primary) hypertension; E11.9 Type 2 diabetes mellitus without complications; J44.9 Chronic obstructive pulmonary disease, unspecified; I25.10 Atherosclerotic heart disease of native coronary artery without angina pectoris; F17.210 Nicotine dependence, cigarettes, uncomplicated; Z79.899 Other long term (current) drug therapy
CPT/HCPCS: 36415; 71046; 80053; 83880; 84484; 85025; 93005; 93010; 96374; 96375; 99284-25; J1200; J1630; J1885

== ENCOUNTER 2020-01-03 17:35 | Inpatient (IN) | payer OTHER ==
[~2020-01-03] VITALS: Ht 157.5 cm; Wt 87.1 kg
[~2020-01-03 17:35] MED LIST changes: -CARISOPRODOL250 MG PO; -LOSARTAN POTASS50 MG PO; -Xylocaine5 M1 MM
[2020-01-03 18:26] LABS: BASOPHILS ABSOLUTE AUTO 0.04 K/mm3 (0.00-0.23); BASOPHILS PERCENT AUTO 0 % (0-2); EOSINOPHILS ABSOLUTE AUTO 0.03 K/mm3 (0.00-0.68); EOSINOPHILS PERCENT AUTO 0 % (0-6); Hematocrit 34.3 % (33.0-51.0); Hemoglobin 11.1 g/dL (11.5-16.0); IMMATURE GRAN ABSOLUTE AUTO 0.05 K/mm3 (0.00-0.10); IMMATURE GRAN PERCENT AUTO 0 % (0-1); LYMPHOCYTES ABSOLUTE AUTO 0.55 K/mm3 (0.84-5.20); LYMPHOCYTES PERCENT AUTO 5 % (21-46); MONOCYTES ABSOLUTE AUTO 1.77 K/mm3 (0.16-1.47); MONOCYTES PERCENT AUTO 16 % (4-13); Mean Corpuscular HGB 28.3 pg (26.0-34.0); Mean Corpuscular HGB Conc 32.4 g/dL (31.5-36.5); Mean Corpuscular Volume 88 fL (80-100); NEUTROPHILS ABSOLUTE AUTO 8.81 K/mm3 (1.96-9.15); NEUTROPHILS PERCENT AUTO 78 % (41-73); Platelet Count 121 K/mm3 (150-400); RDW Coefficient Variation 14.5 % (11.7-14.2); RDW Standard Deviation 46.3 fL (35.1-46.3); Red Blood Cell Count 3.92 M/mm3 (3.80-5.20); White Blood Cell Count 11.25 K/mm3 (4.00-11.30)
[2020-01-03 18:30] LABS: Mean Platelet Volume 13.4 fL (9.1-12.4)
[2020-01-03 18:50] LABS: Source, Urine Clean Catch
[2020-01-03 18:57] LABS: Bilirubin, Urine Neg (Neg); Blood, Urine 5+ (Neg); Glucose Qualitative, Urine Neg (Neg); Ketones, Urine Neg (Neg); Leukocyte Esterase, Urine 3+ (Neg); Nitrite, Urine Neg (Neg); Protein, Urine 3+ (Neg); Specific Gravity, Urine 1.015 (1.003-1.022); Urobilinogen, Urine 1+ (Normal)
[2020-01-03 19:15] LABS: Appearance, Urine Hazy (Clear); Color, Urine Yellow (P-Yellow); White Blood Cells, Urine 25-50 /hpf (0-5)
[2020-01-03 19:16] LABS: Bacteria Mod /hpf; Red Blood Cells, Urine 50-100 /hpf (0-2); Squamous Epithelial Cells Few /hpf (Few); Yeast/Fungi Urine Few /hpf
[2020-01-03 19:17] LABS: Albumin, Blood 2.4 g/dL (3.4-5.0); Albumin/Globulin Ratio 0.6 (0.8-1.8); Bilirubin, Total 0.3 mg/dL (0.1-1.0); Bun/Creatinine Ratio 11.4 (12.0-20.0); Calcium, Blood 8.2 mg/dL (8.5-10.1); Creatinine, Blood 1.32 mg/dL (0.40-1.00); Globulin, Blood 3.8 g/dL (2.2-4.0); Potassium, Blood 3.5 mmol/L (3.5-5.5); Total Protein, Blood 6.2 g/dL (6.4-8.2)
[2020-01-03] MEDS ORDERED: BUSP10 PO (20:16)
[2020-01-03] MEDS ORDERED: LIDOCAINE 2% VISCOUS PO (20:20)
[2020-01-03 20:25] LABS: Adenovirus Not Detected (NOT DETECT); Bordetella pertussis Not Detected (NOT DETECT); Chlamydophila pneumoniae Not Detected (NOT DETECT); Coronavirus 229E Not Detected (NOT DETECT); Coronavirus HKU1 Not Detected (NOT DETECT); Coronavirus NL63 Not Detected (NOT DETECT); Coronavirus OC43 Not Detected (NOT DETECT); Human Metapneumovirus Not Detected (NOT DETECT); Human Rhinovirus/Enterovirus Not Detected (NOT DETECT); Influenza A/2009-H1 Not Detected (NOT DETECT); Influenza A/H1 Not Detected (NOT DETECT); Influenza A/H3 Not Detected (NOT DETECT); Influenza B Not Detected (NOT DETECT); Mycoplasma pneumoniae Not Detected (NOT DETECT); Parainfluenza Virus 1 Not Detected (NOT DETECT); Parainfluenza Virus 2 Not Detected (NOT DETECT); Parainfluenza Virus 3 Not Detected (NOT DETECT); Parainfluenza Virus 4 Not Detected (NOT DETECT); Respiratory Syncytial Virus Not Detected (NOT DETECT)
[2020-01-03] MEDS ORDERED: Carisoprodol350 MG PO (21:08)
[2020-01-03] MEDS ORDERED: ATEN50 PO (21:08)
[2020-01-03] MEDS ORDERED: TRAM50 PO (21:10)
[2020-01-03] MEDS ORDERED: LOSARTAN POTASS50 MG PO (21:11)
[2020-01-03] MEDS ORDERED: Phenergan25 M1 PO (21:12)
[2020-01-03] MEDS ORDERED: Acetaminophen-1 EAC1 PO (21:13)
[2020-01-04 05:37] LABS: BASOPHILS ABSOLUTE AUTO 0.04 K/mm3 (0.00-0.23); BASOPHILS PERCENT AUTO 0 % (0-2); EOSINOPHILS ABSOLUTE AUTO 0.09 K/mm3 (0.00-0.68); EOSINOPHILS PERCENT AUTO 1 % (0-6); Hematocrit 33.9 % (33.0-51.0); Hemoglobin 10.4 g/dL (11.5-16.0); IMMATURE GRAN ABSOLUTE AUTO 0.07 K/mm3 (0.00-0.10); IMMATURE GRAN PERCENT AUTO 1 % (0-1); LYMPHOCYTES ABSOLUTE AUTO 1.18 K/mm3 (0.84-5.20); LYMPHOCYTES PERCENT AUTO 11 % (21-46); MONOCYTES ABSOLUTE AUTO 1.75 K/mm3 (0.16-1.47); MONOCYTES PERCENT AUTO 16 % (4-13); Mean Corpuscular HGB 27.6 pg (26.0-34.0); Mean Corpuscular HGB Conc 30.7 g/dL (31.5-36.5); Mean Corpuscular Volume 90 fL (80-100); NEUTROPHILS PERCENT AUTO 71 % (41-73); Platelet Count 116 K/mm3 (150-400); RDW Coefficient Variation 14.8 % (11.7-14.2); RDW Standard Deviation 48.9 fL (35.1-46.3); Red Blood Cell Count 3.77 M/mm3 (3.80-5.20); White Blood Cell Count 10.73 K/mm3 (4.00-11.30)
[2020-01-04 05:42] LABS: Mean Platelet Volume 13.5 fL (9.1-12.4)
[2020-01-04 06:06] LABS: Albumin, Blood 2.1 g/dL (3.4-5.0); Albumin/Globulin Ratio 0.6 (0.8-1.8); Bilirubin, Total 0.4 mg/dL (0.1-1.0); Bun/Creatinine Ratio 9.8 (12.0-20.0); Calcium, Blood 7.1 mg/dL (8.5-10.1); Creatinine, Blood 1.23 mg/dL (0.40-1.00); Globulin, Blood 3.5 g/dL (2.2-4.0); Potassium, Blood 3.4 mmol/L (3.5-5.5); Total Protein, Blood 5.6 g/dL (6.4-8.2)
--- NOTE | 2020-01-04 07:23 | NUR ---
SHIFT SUMMARY PATIENT ALERT AND ORIENTED. SHOWED OCCASIONAL SIGNS OF CONFUSION. ABLE TO AMBULATE WITH WALKER TO THE BATHROOM AND BACK. IV PATENT AND INFUSING WITH NORMAL SALINE AT 75 ML/HR. BED IN LOWEST POSITION WITH WHEELS LOCKED AND ALARM ON. CALL LIGHT WITHIN REACH. REPORT GIVEN TO ADAM MACIAS.
--- NOTE | 2020-01-04 11:27 | NUR ---
Echocardiogram attempled, however it was not completed per patient request.
--- NOTE | 2020-01-04 19:30 | NUR ---
SHIFT SUMMARY CT COMPLAINED OF SEVERE PAIN ALL DAY. SHE OFTEN FELL ASLEEP FOR NAPS BUT WOULD INSIST THAT SHE WAS VERY PAINFUL. HAD PARTIAL ECHO DONE BEFORE REFUSING DUE TO PAIN IN HER L FLANK. CBGS ACHS, DID REFUSE EVENING CBG. VSS, SBA TO BR. URINATED ONCE IN THE GARBAGE CAN, SAYS SHE SOMETIMES DOES THIS AT HOME. UNSURE IF THIS IS MILD CONFUSION, OR IF SHE REALLY DOES THIS. NO OTHER SIGNS OF CONFUSION NOTED.
[2020-01-05 05:25] LABS: Bun/Creatinine Ratio 15.9 (12.0-20.0); Calcium, Blood 8.2 mg/dL (8.5-10.1); Creatinine, Blood 1.13 mg/dL (0.40-1.00); Potassium, Blood 3.9 mmol/L (3.5-5.5)
--- NOTE | 2020-01-05 06:36 | NUR ---
SHIFT SUMMARY PT IS A 59 Y/O FEMALE, ADMITTED FOR UTI. PT IS A&O X 3, AND A SBA IN THE ROOM. THE PT FREQUENTLY REQUESTS PAIN MEDICATIONS, AND FELL BACK ASLEEP BEFORE MEDICATIONS COULD BE GIVEN. SHE WAS MEDICATED X3 FOR PAIN WITH TRAMADOL AND FENTANYL. NO COMPLAINTS OF NAUSEA OR SOB. VITAL SIGNS STABLE. NO ACUTE CHANGES IN PT CONDITION NOTED. WILL CONTINUE TO MONITOR AND TREAT PER EMAR UNTIL HAND OFF TO DAY SHIFT RN.
--- NOTE | 2020-01-05 13:08 | NUR ---
DISCHARGE SUMMARY CT FOUND OUT SHE WASN'T BEING DISCHARGED WITH PAIN MEDICATOIN, SHE BECAME VERY UPSET AND STARTED YELLING. DECIDED TO LEAVE AMA RIGHT AWAY , PT EDUCATED ON THE FACT THAT WITHOUT ANTIBIOTICS, SHE LIKELY WILL COME BACK WIHT REPEAT INFECTION. SHE LEFT W/ PIV IN ARM, CALLED HER CELL AND LEFT MESSAGE TO TELL HER TO TAKE IT OUT AND HOW TO DO SO.
[2020-01-06] MEDS ORDERED: CEPH500 PO (21:22)
== END 2020-01-05 13:00 | disposition left against medical advice (07) | DRG 872 ==
LOC: ER 17:35 → MEDS 17:36 → ER 01-04 00:48 → MEDS 01-04 00:48
PROVIDERS: Emergency Medicine; Internal Medicine; ADMIT Internal Medicine
PROC: 8E0ZXY6 Isolation (ICD-10-PCS; principal; 2020-01-04)
DX: A41.9 Sepsis, unspecified organism (principal); N17.9 Acute kidney failure, unspecified; N30.00 Acute cystitis without hematuria; I10 Essential (primary) hypertension; G43.909 Migraine, unspecified, not intractable, without status migrainosus; J44.9 Chronic obstructive pulmonary disease, unspecified; E11.9 Type 2 diabetes mellitus without complications; Z85.819 Personal history of malignant neoplasm of unspecified site of lip, oral cavity, and pharynx; I25.10 Atherosclerotic heart disease of native coronary artery without angina pectoris; F17.210 Nicotine dependence, cigarettes, uncomplicated; Z20.828 Contact with and (suspected) exposure to other viral communicable diseases; E86.0 Dehydration; J02.9 Acute pharyngitis, unspecified; R65.20 Severe sepsis without septic shock; E87.6 Hypokalemia; G89.4 Chronic pain syndrome; R01.1 Cardiac murmur, unspecified
CPT/HCPCS: 0099U; 36415; 71045; 80048; 80053; 81001; 82947; 83605; 85025; 87077; 87086; 87186; 93308; 96361; 96365; 96375; 97116; 97162; 99285-25; A9270; A9270-GY; J0696; J1170; J1650; J3010; J3480; J7030; U0003

== ENCOUNTER 2020-01-06 20:30 | Emergency (ER) | payer OTHER ==
[~2020-01-06] VITALS: Ht 157.5 cm; Wt 81.7 kg
[~2020-01-06 20:30] MED LIST changes: +Carisoprodol350 MG PO; +LIDOCAINE 2% VISCOUS PO; +LOSARTAN POTASS50 MG PO
[2020-01-06 20:50] LABS: Source, Urine Clean Catch
[2020-01-06 20:57] LABS: Appearance, Urine Hazy (Clear); Bilirubin, Urine Neg (Neg); Blood, Urine 5+ (Neg); Color, Urine Yellow (P-Yellow); Glucose Qualitative, Urine Neg (Neg); Ketones, Urine Neg (Neg); Leukocyte Esterase, Urine 3+ (Neg); Nitrite, Urine Neg (Neg); Protein, Urine 3+ (Neg); Urobilinogen, Urine NORM (Normal)
[2020-01-06 21:04] LABS: Bacteria Mod /hpf; Squamous Epithelial Cells Many /hpf (Few)
[2020-01-06 21:05] LABS: Red Blood Cells, Urine 25-50 /hpf (0-2)
[2020-01-06] MEDS ORDERED: CEPH500 PO (21:22)
== END 2020-01-06 21:35 | disposition home or self-care (01) ==
LOC: ER 20:30
PROVIDERS: Emergency Medicine
DX: N39.0 Urinary tract infection, site not specified (principal); I10 Essential (primary) hypertension; J44.9 Chronic obstructive pulmonary disease, unspecified; E11.9 Type 2 diabetes mellitus without complications; I25.10 Atherosclerotic heart disease of native coronary artery without angina pectoris; F17.210 Nicotine dependence, cigarettes, uncomplicated; Z79.899 Other long term (current) drug therapy
CPT/HCPCS: 81001; 87086; 96372; 99284-25; A9270-GY; J1885

== ENCOUNTER 2020-01-25 12:13 | Emergency (ER) | payer OTHER ==
[~2020-01-25] VITALS: Ht 157.5 cm; Wt 81.7 kg
== END 2020-01-25 12:33 | disposition home or self-care (01) ==
LOC: ER 12:13
DX: S16.1XXA Strain of muscle, fascia and tendon at neck level, initial encounter (principal); I10 Essential (primary) hypertension; J44.9 Chronic obstructive pulmonary disease, unspecified; E11.9 Type 2 diabetes mellitus without complications; F17.210 Nicotine dependence, cigarettes, uncomplicated; Z79.899 Other long term (current) drug therapy; X58.XXXA Exposure to other specified factors, initial encounter
CPT/HCPCS: 99283